=== PATIENT | female | born 1985 | race American Indian/Alaskan Native ===

== ENCOUNTER 2016-06-30 01:56 | Emergency (ER) | payer MEDICAID ==
[2016-06-30 03:05] VITALS: BP 128/80
[2016-06-30 04:54] LABS: Basophils % (Auto) 0.7 % (0.0-1.8); Eosinophils % (Auto) 2.3 % (0.0-4.3); Hematocrit 32.9 % (30.3-42.9); Mean Corpuscular HGB Conc 33 % (30-34); Mean Corpuscular Hemoglobin 30 pg (28-32); Mean Corpuscular Volume 91 fl (79-97); Platelet Count 300 K/mm3 (140-440); Red Blood Count 3.61 M/mm3 (3.65-5.03); Red Cell Distribution Width 12.9 % (13.2-15.2); White Blood Count 6.3 K/mm3 (4.5-11.0)
[2016-06-30 05:02] LABS: BUN/Creatinine Ratio 16.66; Blood Urea Nitrogen 10 mg/dL (7-17); Calcium 8.6 mg/dL (8.4-10.2); Carbon Dioxide 28 mmol/L (22-30); Chloride 99.4 mmol/L (98-107); Glucose 56 mg/dL (65-100); Potassium 3.4 mmol/L (3.6-5.0); Sodium 142 mmol/L (137-145)
[2016-06-30 05:08] LABS: Anion Gap 18 mmol/L
--- NOTE | 2016-06-30 19:42 | ED Elopement Review ---
ED Pt Elopement review - Results review Lab results: Laboratory Tests 06/30/16 06/30/16 06/30/16 04:27 04:27 04:27 WBC 6.3 RBC 3.61 L Hgb 11.0 Hct 32.9 MCV 91 MCH 30 MCHC 33 RDW 12.9 L Plt Count 300 Lymph % (Auto) 43.0 H [place] % (Auto) 10.3 H Eos % (Auto) 2.3 Baso % (Auto) 0.7 Lymph # 2.7 [place] # 0.7 Eos # 0.1 Baso # 0.0 Seg Neutrophils % 43.7 Seg Neutrophils # 2.8 Sodium 142 Potassium 3.4 L Chloride 99.4 Carbon Dioxide 28 Anion Gap 18 BUN 10 Creatinine 0.6 L Estimated GFR > 60 BUN/Creatinine Ratio 16.66 Glucose 56 L Calcium 8.6 Troponin T < 0.010 < 0.010 Urine HCG, Qual 06/30/16 06/30/16 07:40 09:12 WBC RBC Hgb Hct MCV MCH MCHC RDW Plt Count Lymph % (Auto) [place] % (Auto) Eos % (Auto) Baso % (Auto) Lymph # [place] # Eos # Baso # Seg Neutrophils % Seg Neutrophils # Sodium Potassium Chloride Carbon Dioxide Anion Gap BUN Creatinine Estimated GFR BUN/Creatinine Ratio Glucose Calcium Troponin T < 0.010 Urine HCG, Qual Negative - Call Back decision Pt Call Back Decision: No action required
== END 2016-06-30 04:30 | disposition left against medical advice (07) ==
LOC: ED 01:56
DX: R00.2 Palpitations (principal); M54.5 Low back pain; Z53.21 Procedure and treatment not carried out due to patient leaving prior to being seen by health care provider
CPT/HCPCS: 36415; 80048; 81025; 84484; 85025; 93005; 93010

== ENCOUNTER 2016-09-16 09:18 | Day surgery (SDC) | payer MEDICAID ==
[~2016-09-16 09:18] MED LIST: VANCOMYCIN/NS 1 GM/250 ML 1 GM/250 ML BAG IV NR
--- NOTE | 2016-09-16 10:34 | Anesthesia Consultation ---
Anesthesia Consult and Med Hx Date of service: 09/16/16 - Airway Anesthetic Teeth Evaluation: Good ROM Head & Neck: Adequate Mental/Hyoid Distance: Adequate Mallampati Class: Class II Intubation Access Assessment: Probably Good - Pulmonary Exam CTA: Yes - Cardiac Exam Cardiac Exam: RRR - Pre-Operative Health Status ASA Pre-Surgery Classification: ASA2 Proposed Anesthetic Plan: General - Pulmonary Hx Smoking: No Hx Asthma: Yes (LAST USE OF INHALER WAS 1 YR AGO/ "DON'T HAVE AN INHALER") Hx Respiratory Symptoms: No SOB: No COPD: No Hx Pneumonia: No Hx Sleep Apnea: No - Cardiovascular System Hx Hypertension: No Hx Coronary Artery Disease: No Hx Heart Attack/AMI: No Hx Angina: No Hx Percutaneous Transluminal Coronary Angioplasty (PTCA): No Hx Cardia Arrhythmia: No Hx Pacemaker: No Hx Internal Defibrillator: No Hx Valvular Heart Disease: No Hx Heart Murmur: No Hx Peripheral Vascular Disease: No - Central Nervous System Hx Neuromuscular Disorder: No Hx Seizures: No CVA: No Hx Back Pain: Yes Hx Psychiatric Problems: Yes (REFUSES PYSCH MEDICATIONS) - Gastrointestinal Hx Ulcer: No Hx Gastroesophageal Reflux Disease: No - Endocrine Hx Renal Disease: No Hx End Stage Renal Disease: No Hx Cirrhosis: No Hx Liver Disease: No Hx Insulin Dependent Diabetes: No Hx Non-Insulin Dependent Diabetes: No Hx Thyroid Disease: No Hx Hypothyroidism: No Hx Hyperthyroidism: No - Hematic Hx Anemia: No Hx Sickle Cell Disease: No - Other Systems Hx Alcohol Use: No Hx Substance Use: No Hx Cancer: No Hx Obesity: Yes
--- NOTE | 2016-09-16 10:35 | Anesthesia Day of Surgery ---
Anesthesia Day of Surgery - Day of Surgery Patient Examined: Yes Patient H&P Reviewed: Yes Patient is NPO: Yes
[2016-09-16] MEDS ORDERED: NORCO 5/325 PO PRN ×2 (10:37→19:26)
[2016-09-16] MEDS ORDERED: DILAUDID IV PRN (10:37)
[2016-09-16] MEDS ORDERED: ZOFRAN IV PRN ×2 (10:37→19:26)
[2016-09-16] MEDS ORDERED: LACTATED RINGERS 1,000 ML IV SCH (11:00)
[2016-09-16] MEDS ORDERED: VERSED IV NR (11:00)
[2016-09-16] MEDS ORDERED: PEPCID PO NR (11:00)
[2016-09-16 11:18] LABS: Hematocrit 36.7 % (30.3-42.9); Hemoglobin 12.3 gm/dl (10.1-14.3); Mean Corpuscular HGB Conc 33 % (30-34); Mean Corpuscular Hemoglobin 30 pg (28-32); Mean Corpuscular Volume 89 fl (79-97); Platelet Count 335 K/mm3 (140-440); Red Blood Count 4.12 M/mm3 (3.65-5.03); Red Cell Distribution Width 13.4 % (13.2-15.2); White Blood Count 4.9 K/mm3 (4.5-11.0)
[2016-09-16] MEDS ORDERED: DIPRIVAN 10 MG/ML IV ONE ×2 (13:55→17:01)
[2016-09-16] MEDS ORDERED: DILAUDID ONE (13:56)
[2016-09-16] MEDS ORDERED: XYLOCAINE MPF 2% ONE (16:00)
[2016-09-16] MEDS ORDERED: SUBLIMAZE ONE (16:03)
[2016-09-16] MEDS ORDERED: ZOFRAN ONE (16:18)
[2016-09-16] MEDS ORDERED: DECADRON ONE (16:18)
[2016-09-16] MEDS ORDERED: BREVIBLOC IV ONE (16:24)
[2016-09-16] MEDS ORDERED: NORMODYNE IV ONE (17:04)
[2016-09-16] MEDS ORDERED: NACL 0.9% IR ONE (17:06)
[2016-09-16] MEDS ORDERED: APRESOLINE ONE (17:08)
[2016-09-16] MEDS ORDERED: LACTATED RINGERS 1,000 ML ONE (17:22)
--- NOTE | 2016-09-16 19:00 | Operative Report ---
PREOPERATIVE DIAGNOSIS: Macromastia. POSTOPERATIVE DIAGNOSIS: Macromastia. PROCEDURE: Bilateral reduction mammoplasty. SURGEON: Ranjit Mccain MD INSOLE COVERER: Jl Ren CSA PROCEDURE: Bilateral breast reduction. FINDINGS: A 900 gm removed from the left breast, 1020 gm removed from the right breast. DESCRIPTION OF PROCEDURE: The patient was brought to the operating room and placed in supine position. On administration of general anesthesia, bilateral breasts were prepped with Betadine solution and draped in usual sterile manner. A #10 blade scalpel was used to make a circumareolar skin incision followed by epithelization of an inferior dermal pedicle. Otherwise pattern skin markings were incised with scalpel, deepened through subcutaneous fat and breast tissue using the electrocautery. Skin flaps were raised in standard manner as was fashioning of an inferior central mound pedicle. Breasts tissue was resected and sent to pathology as specimen. Hemostasis controlled using the electrocautery. Skin flaps were closed over 10-mm Porfirio drain using interrupted and running subcuticular 2-0 Monocryl sutures. Mastisol, Steri-Strips, and sterile dressings applied. The patient tolerated the procedure well and returned to recovery room in stable condition. JOB# [id number] FTW/NTS
[2016-09-16] MEDS: DILAUDID IV PRN ×2 (19:35→19:55)
[2016-09-16 21:03] VITALS: BP 127/88
--- NOTE | 2016-09-16 21:34 | Post Anesthesia Evaluation ---
- Post Anesthesia Evaluation Patient Participated: Yes Airway Patent: Yes Stable Respiratory Function: Yes Temp > 96.8F: Yes Pain Manageable: Yes Adequeate Hydration: Yes Anesthesia Complications: No Block Receding Appropriately: Not Applicable
== END 2016-09-16 21:45 | disposition home or self-care (01) ==
LOC: OR 09:18
PROVIDERS: ATTEND Plastic Surgery
DX: N62 Hypertrophy of breast (principal); F41.9 Anxiety disorder, unspecified; F32.9 Major depressive disorder, single episode, unspecified; J45.909 Unspecified asthma, uncomplicated; E66.9 Obesity, unspecified; Z68.35 Body mass index [BMI] 35.0-35.9, adult
CPT/HCPCS: 19318; 36415; 81025; 85027; 88305; J0360; J1100; J1170; J2250; J2405; J2704; J3010; J3370; J7120

== ENCOUNTER 2016-10-27 16:57 | Emergency (ER) | payer MEDICAID ==
[2016-10-27 17:53] VITALS: BP 137/93
--- NOTE | 2016-10-27 20:00 | Emergency Department Report ---
ED Rash HPI - HPI Chief Complaint: Skin Rash Stated Complaint: ITCHING Time Seen by Provider: 10/27/16 19:31 Duration: ongoing for more than a week Location: Other (generalized) Suspected Cause: Unknown Rash Symptoms: Yes Itching (all over body.), No Facial Swelling, No Tongue/Oral Swelling, No Breathing Difficulties, No Choking Sensation, No Wheezing/Dyspnea, No Peeling, No Blistering, No Fever, No Lightheaded, No Malaise, No Myalgias Severity: moderate Other History: Patient here complaining itching her body. She denies any rash. She says she's been seen by her primary care doctor [facility] on some anti-itch and medication to exclude a hydroxyzine but it didn't help. He put her on 3 different medication but she says she still itching all over. She says she's scratching and itching is more intense when she gets in the shower. Denies any nausea or vomiting. Patient denies any respiratory symptoms. Denies any fever or chills. Denies any rash in her body. She says she just had red escalona from where she is itching. Denies any new food, medication in her environment. She had breast reduction at this hospital recently but she is healing fine. ED Review of Systems ROS: Stated complaint: ITCHING Other details as noted in HPI Comment: All other systems reviewed and negative Constitutional: denies: chills, fever ENT: denies: throat pain, congestion Respiratory: no symptoms reported Cardiovascular: denies: chest pain, palpitations, edema, syncope Gastrointestinal: denies: nausea, vomiting Musculoskeletal: denies: back pain, arthralgia Skin: pruritus. denies: rash, lesions Neurological: denies: headache ED Past Medical Hx - Past Medical History Previous Medical History?: Yes Hx Hypertension: No Hx Heart Attack/AMI: No Hx Liver Disease: No Hx Renal Disease: No Hx Sickle Cell Disease: No Hx Headaches / Migraines: Yes (MIGRAINES) Hx Seizures: No Hx Asthma: Yes (LAST USE OF INHALER WAS 1 YR AGO/ "DON'T HAVE AN INHALER") Hx COPD: No Hx HIV: No - Surgical History Past Surgical History?: Yes Hx Pacemaker: No Hx Internal Defibrillator: No Additional Surgical History: csection. D & C - Family History Family history: no significant - Social History Smoking Status: Never Smoker Substance Use Type: None - Medications Home Medications: Home Medications Medication Instructions Recorded Confirmed Last Taken Type HYDROcodone/APAP 5-325 [Fleming 1 each PO Q6HR PRN #20 tablet 03/12/14 09/13/16 Unknown Rx 5/325] Cephalexin [Keflex] 500 mg PO 09/13/16 Unknown History Sulfamethoxazole/Trimethoprim 1 tab PO BID 09/13/16 09/13/16 Unknown History [Sulfamethoxazole-Tmp Ds Tablet] hydrOXYzine HCL [Atarax] 25 mg PO Q6HR PRN #16 tablet 10/27/16 Unknown Rx Rash Exam - Exam General: Vital signs noted. No distress. Alert and acting appropriately. This is a 31-year-old female well-nourished well-developed in no acute distress. HEENT: No Periorbital Edema, No Conjuctival Injection, No Chemosis, No Perioral Edema, No Tongue Edema, No Uvular Edema, No Compromised Airway, No Drooling Lungs: Yes Good Air Exchange, No Wheezes, No Ronchi, No Stridor, No Cough, No Labored Respirations, No Retractions, No Use of Accessory Muscles Heart: Yes Regular (S1-S2. Tachycardic at 107), No Murmur Skin: No Urticarial Rash, No Maculopapular Rash, No Morbilliform rash, No Bulla( e), No Excoriations, No Weeping, No Tenderness, No Erythema, No Edema, No Encrustations, No Other Other: Positive: Abdomen Normal, Neurologic Normal, Musculoskeletal Normal ED Course Vital Signs 10/27/16 17:50 Temperature 98.4 F Pulse Rate 107 H Respiratory 18 Rate Blood Pressure 137/93 O2 Sat by Pulse 99 Oximetry Vital Signs 10/27/16 10/27/16 17:50 20:49 Temperature 98.4 F Pulse Rate 107 H 92 H Respiratory 18 Rate Blood Pressure 137/93 O2 Sat by Pulse 99 Oximetry - Reevaluation(s) Reevaluation #1: 10/27/16 20:52 10/27/16 20:53 Patient given Decadron 10 mg IM and emergency room. ED Medical Decision Making - Medical Decision Making ED course: Patient here for itchy skin, up and surveillance of her skin, no rash noted. Patient was treated by her primary care physician with 3 different types of anti-itch medication but it's not working. Patient was given Decadron 10 mg IM and emergency room. 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 SHe voices understanding and discharged home in stable condition with prescription for Atarax Critical care attestation.: If time is entered above; I have spent that time in minutes in the direct care of this critically ill patient, excluding procedure time. ED Disposition Clinical Impression: Pruritic condition Disposition: DISCHARGED TO HOME OR SELFCARE Is pt being admited?: No Does the pt Need Aspirin: No Condition: Stable Instructions: Itchy Skin (ED) Additional Instructions: Please follow-up with your primary care physician along with school traffic guard is recommended in discharge instruction paperwork. Atarax can cause drowsiness so please do not operate heavy machinery or drive motor vehicle while taking this medication. Prescriptions: hydrOXYzine HCL [Atarax] 25 mg PO Q6HR PRN #16 tablet PRN Reason: Itching Referrals: PRIMARY CAREMD [Primary Care Provider] - 2-3 Days JUAN ORTIZ MD [Staff Physician] - 2-3 Days Forms: Accompanied Note, Work/School Release Form(ED)
[2016-10-27] MEDS ORDERED: DECADRON IM ONE (20:01)
== END 2016-10-27 21:03 | disposition home or self-care (01) ==
LOC: ED 16:57
DX: L29.9 Pruritus, unspecified (principal); G43.909 Migraine, unspecified, not intractable, without status migrainosus; J45.909 Unspecified asthma, uncomplicated
CPT/HCPCS: 96372; 99281; J1100

== ENCOUNTER 2016-11-11 21:31 | Emergency (ER) | payer MEDICAID ==
--- NOTE | 2016-11-12 01:52 | Emergency Department Report ---
ED General Adult HPI - General Chief complaint: Skin Rash Stated complaint: RASH Time Seen by Provider: 11/12/16 00:58 Source: patient Mode of arrival: Ambulatory Limitations: No Limitations - History of Present Illness Initial comments: This is a 31-year-old female that c/o of "itching inside" since 2012. Patient stated this is an intermittent. Patient denies any rash, fever, chills, abd pain, CP, SOB, numbness, tingling, headache, stiff neck. Patient stated she's been seeing her primary care doctor supervisor rolling room that has been taking several different medication with no relief. Patient describes symptoms as " something is itching inside my body". 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 Patient agrees to N allergies. Patient stated was here 2012 and received steroids that helped her symptoms but denies taking steroids the past 2 years. MD Complaint: Itching -: Gradual, year(s) (4) Radiation: non-radiation Severity scale (0 -10): 0 Consistency: intermittent Improves with: other (prednisone) Worsens with: none Associated Symptoms: denies other symptoms. denies: confusion, cough, diaphoresis, fever/chills, headaches, loss of appetite, malaise, nausea/vomiting , rash, seizure, shortness of breath, syncope, weakness Treatments Prior to Arrival: none - Related Data Home Medications Medication Instructions Recorded Confirmed Last Taken Clarithromycin [Biaxin] 500 mg PO BID 11/12/16 11/12/16 1 Day Ago Ferrous Sulfate [Feosol] 325 mg PO BID 11/12/16 11/12/16 1 Day Ago Potassium Citrate [Potassium 10 meq PO DAILY 11/12/16 11/12/16 1 Day Ago Citrate ER] Topiramate [Topamax] 100 mg PO BID 11/12/16 11/12/16 1 Day Ago diphenhydrAMINE [Benadryl CAP] 25 mg PO Q6HR PRN 11/12/16 11/12/16 1 Day Ago metroNIDAZOLE [Flagyl] 500 mg PO Q12HR 11/12/16 11/12/16 11/11/16 Previous Rx's Medication Instructions Recorded Last Taken Type hydrOXYzine HCL [Atarax] 25 mg PO Q6HR PRN #16 tablet 10/27/16 11/12/16 Rx predniSONE [Deltasone] 20 mg PO BID #10 tab 11/12/16 Unknown Rx Allergies Allergy/AdvReac Type Severity Reaction Status Date / Time Penicillins Allergy Swelling Verified 01/26/14 20:27 ED Review of Systems ROS: Stated complaint: RASH Other details as noted in HPI Constitutional: denies: chills, fever Eyes: denies: eye pain, eye discharge, vision change ENT: denies: ear pain, throat pain Respiratory: denies: cough, shortness of breath, wheezing Cardiovascular: denies: chest pain, palpitations Endocrine: no symptoms reported Gastrointestinal: denies: abdominal pain, nausea, diarrhea Genitourinary: denies: urgency, dysuria, discharge Musculoskeletal: denies: back pain, joint swelling, arthralgia Skin: denies: rash, lesions Neurological: denies: headache, weakness, paresthesias Psychiatric: denies: anxiety, depression Hematological/Lymphatic: denies: easy bleeding, easy bruising ED Past Medical Hx - Past Medical History Hx Hypertension: No Hx Heart Attack/AMI: No Hx Liver Disease: No Hx Renal Disease: No Hx Sickle Cell Disease: No Hx Headaches / Migraines: Yes (MIGRAINES) Hx Seizures: No Hx Asthma: Yes (LAST USE OF INHALER WAS 1 YR AGO/ "DON'T HAVE AN INHALER") Hx COPD: No Hx HIV: No - Surgical History Hx Pacemaker: No Hx Internal Defibrillator: No Additional Surgical History: csection. D & C - Social History Smoking Status: Never Smoker Substance Use Type: None - Medications Home Medications: Home Medications Medication Instructions Recorded Confirmed Last Taken Type hydrOXYzine HCL [Atarax] 25 mg PO Q6HR PRN #16 tablet 10/27/16 11/12/16 Rx Clarithromycin [Biaxin] 500 mg PO BID 11/12/16 11/12/16 1 Day Ago History Ferrous Sulfate [Feosol] 325 mg PO BID 11/12/16 11/12/16 1 Day Ago History Potassium Citrate [Potassium 10 meq PO DAILY 11/12/16 11/12/16 1 Day Ago History Citrate ER] Topiramate [Topamax] 100 mg PO BID 11/12/16 11/12/16 1 Day Ago History diphenhydrAMINE [Benadryl CAP] 25 mg PO Q6HR PRN 11/12/16 11/12/16 1 Day Ago History metroNIDAZOLE [Flagyl] 500 mg PO Q12HR 11/12/16 11/12/16 11/11/16 History predniSONE [Deltasone] 20 mg PO BID #10 tab 11/12/16 Unknown Rx ED Physical Exam - General Limitations: No Limitations General appearance: alert, in no apparent distress - Head Head exam: Present: atraumatic, normocephalic - Eye Eye exam: Present: normal appearance, PERRL, EOMI Pupils: Present: normal accommodation - ENT ENT exam: Present: normal exam, normal orophraynx, mucous membranes moist, TM's normal bilaterally, normal external ear exam - Neck Neck exam: Present: normal inspection, full ROM. Absent: tenderness, meningismus, lymphadenopathy, thyromegaly - Respiratory Respiratory exam: Present: normal lung sounds bilaterally. Absent: respiratory distress, wheezes, rales, rhonchi, stridor, chest wall tenderness, accessory muscle use, decreased breath sounds, prolonged expiratory - Cardiovascular Cardiovascular Exam: Present: regular rate, normal rhythm, normal heart sounds. Absent: bradycardia, tachycardia, irregular rhythm, systolic murmur, diastolic murmur, rubs, gallop - GI/Abdominal GI/Abdominal exam: Present: soft, normal bowel sounds. Absent: distended, tenderness, guarding, rebound, rigid, diminished bowel sounds, hyperactive bowel sounds, hypoactive bowel sounds, organomegaly, mass, bruit, pulsatile mass , hernia - Extremities Exam Extremities exam: Present: normal inspection, full ROM, normal capillary refill. Absent: tenderness, pedal edema, joint swelling, calf tenderness - Back Exam Back exam: Present: normal inspection, full ROM. Absent: tenderness, CVA tenderness (R), CVA tenderness (L), muscle spasm, paraspinal tenderness, vertebral tenderness, rash noted - Neurological Exam Neurological exam: Present: alert, oriented X3, CN II-XII intact, normal gait - Psychiatric Psychiatric exam: Present: normal affect, normal mood - Skin Skin exam: Present: warm, dry, intact, normal color. Absent: rash, cyanosis, diaphoretic, erythema, urticaria, vesicles, petechiae, pallor, abrasion, ecchymosis ED Course Vital Signs 11/11/16 21:46 Temperature 98.7 F Pulse Rate 100 H Respiratory 18 Rate Blood Pressure 127/90 O2 Sat by Pulse 100 Oximetry ED Medical Decision Making - Medical Decision Making Ed course: This is a 31 year old female that c/o of itching 1- after my physical exam and reviewed 2013 medical treatment, patient received prednisone for 5 days. 2- I instructed the patient to follow-up with her primary care doctor in 3-5 days if symptoms don't subside. 3- at time time of discharge, the patient does not seem toxic or ill in appearance. No acute signs of distress noted. Patient agrees to discharge treatment plan of care. No further questions noted by the patient. Critical care attestation.: If time is entered above; I have spent that time in minutes in the direct care of this critically ill patient, excluding procedure time. ED Disposition Clinical Impression: Itching Disposition: DISCHARGED TO HOME OR SELFCARE Is pt being admited?: No Does the pt Need Aspirin: No Condition: Stable Instructions: Prednisone (By mouth), Itchy Skin (ED) Additional Instructions: Take full course of prednisone as prescribed. Follow-up with her primary care doctor in 3-5 days if symptoms don't subside. Prescriptions: predniSONE [Deltasone] 20 mg PO BID #10 tab Referrals: PRIMARY CAREMD [Primary Care Provider] - 3-5 Days [facility] [Outside] - 3-5 Days [facility] [Outside] - 3-5 Days HOLA HALE MD [Staff Physician] - 3-5 Days Forms: Work/School Release Form(ED)
[2016-11-12 02:26] VITALS: BP 105/76
== END 2016-11-12 02:26 | disposition home or self-care (01) ==
LOC: ED 21:31
DX: L29.9 Pruritus, unspecified (principal); Z53.21 Procedure and treatment not carried out due to patient leaving prior to being seen by health care provider; G43.909 Migraine, unspecified, not intractable, without status migrainosus; J45.909 Unspecified asthma, uncomplicated; Z88.0 Allergy status to penicillin
CPT/HCPCS: 99282

== ENCOUNTER 2016-11-27 11:28 | Outpatient (CLI) | payer MEDICAID ==
--- NOTE | 2016-11-27 14:19 | Cat Scan Report ---
CT lumbar spine without contrast: Low back pain. Transverse images are obtained from T12 through the sacrum with coronal and sagittal 2-D reformatted images. The vertebral height, alignment, and interspace distances are well preserved. The bones are well-mineralized. No evidence of foraminal or spinal stenosis. No evidence of disc bulge or herniation. Evaluation for these findings however may be somewhat limited by the lack of thecal contrast. Impressions: No pathology identified.
== END 2016-11-27 11:29 | disposition home or self-care (01) ==
LOC: CT 11:28
PROVIDERS: ATTEND Physical Medicine & Rehabilitation
DX: M54.5 Low back pain (principal); J45.909 Unspecified asthma, uncomplicated; F32.9 Major depressive disorder, single episode, unspecified; F41.9 Anxiety disorder, unspecified
CPT/HCPCS: 72131

== ENCOUNTER 2017-03-05 03:40 | Emergency (ER) | payer MEDICAID ==
[2017-03-05 05:07] LABS: Urine Drugs of Abuse Note Disclamer
[2017-03-05 05:15] LABS: Hematocrit 36.9 % (30.3-42.9); Mean Corpuscular HGB Conc 33 % (30-34); Mean Corpuscular Hemoglobin 28 pg (28-32); Mean Corpuscular Volume 87 fl (79-97); Platelet Count 382 K/mm3 (140-440); Red Blood Count 4.25 M/mm3 (3.65-5.03); Red Cell Distribution Width 14.2 % (13.2-15.2); White Blood Count 8.9 K/mm3 (4.5-11.0)
[2017-03-05 05:18] LABS: Bacteria,Urine 2+ /HPF (Negative); Bilirubin,Urine NEG (Negative); Blood,Urine NEG (Negative); Ketones,Urine NEG (Negative); Leukocyte Esterase,Urine LG (Negative); Mucus,Urine FEW /HPF; Nitrite,Urine NEG (Negative); Protein,Urine <15 mg/dL mg/dL (Negative); Urobilinogen,Urine < 2.0 mg/dL (<2.0)
[2017-03-05 05:24] LABS: INR 1.02 (0.87-1.13)
[2017-03-05 05:25] LABS: Partial Thromboplastin Time 32.8 Sec. (24.2-36.6)
[2017-03-05 05:30] LABS: Alanine Aminotransferase 15 units/L (7-56); Albumin 4.1 g/dL (3.9-5); Albumin/Globulin Ratio 0.9 %; Alkaline Phosphatase 93 units/L (35-129); Anion Gap 22 mmol/L; BUN/Creatinine Ratio 11.66; Blood Urea Nitrogen 7 mg/dL (7-17); Carbon Dioxide 17 mmol/L (22-30); Chloride 103.1 mmol/L (98-107); Glucose 193 mg/dL (65-100); Lipase 19 units/L (13-60); Potassium 3.7 mmol/L (3.6-5.0); Sodium 138 mmol/L (137-145); Total Protein 8.6 g/dL (6.3-8.2)
[2017-03-05 05:49] LABS: Basophils % (Manual) 0 % (0.0-1.8); Blastocytes % (Manual) 0 %; Eosinophils % (Manual) 0 % (0.0-4.3); Total Cells Counted Percent 0
[2017-03-05 05:50] LABS: Diff Status Complete; Platelet Estimate Consistent w Auto
--- NOTE | 2017-03-05 11:13 | Emergency Department Report ---
ED General Adult HPI - General Chief complaint: Skin Rash Stated complaint: HIVES Time Seen by Provider: 03/05/17 11:11 Source: patient Mode of arrival: Ambulatory Limitations: No Limitations - History of Present Illness Initial comments: Patient has been previously seen by an allergy horticultural manager. She is on multiple medications for recurrent hives. She states that she took 5 prednisone yesterday by her tv host told her not to take prednisone so they can do some blood tests. She has recurrent hives and generalized pruritus today. She denies any respiratory symptoms. She states she has a history of thyroid problems. She arrived tachycardic and somewhat anxious. She had no other complaint. -: month(s) Location: chest, back, abdomen (pruritus no pain) Associated Symptoms: denies other symptoms - Related Data Home Medications Medication Instructions Recorded Confirmed Last Taken Clarithromycin [Biaxin] 500 mg PO BID 11/12/16 11/12/16 1 Day Ago Ferrous Sulfate [Feosol] 325 mg PO BID 11/12/16 11/12/16 1 Day Ago Potassium Citrate [Potassium 10 meq PO DAILY 11/12/16 11/12/16 1 Day Ago Citrate ER] Topiramate [Topamax] 100 mg PO BID 11/12/16 11/12/16 1 Day Ago diphenhydrAMINE [Benadryl CAP] 25 mg PO Q6HR PRN 11/12/16 11/12/16 1 Day Ago metroNIDAZOLE [Flagyl] 500 mg PO Q12HR 11/12/16 11/12/16 11/11/16 Previous Rx's Medication Instructions Recorded Last Taken Type hydrOXYzine HCL [Atarax] 25 mg PO Q6HR PRN #16 tablet 10/27/16 11/12/16 Rx predniSONE [Deltasone] 20 mg PO BID #10 tab 11/12/16 Unknown Rx Famotidine [Pepcid] 20 mg PO BID #7 tablet 03/05/17 Unknown Rx Nitrofurantoin Bland/M-Cryst 100 mg PO Q12HR #7 capsule 03/05/17 Unknown Rx [Macrobid CAP] Allergies Allergy/AdvReac Type Severity Reaction Status Date / Time Penicillins Allergy Swelling Verified 01/26/14 20:27 ED Review of Systems ROS: Stated complaint: HIVES Other details as noted in HPI Constitutional: denies: chills, fever Eyes: denies: eye pain, eye discharge, vision change ENT: denies: ear pain, throat pain Respiratory: denies: cough, shortness of breath, wheezing Cardiovascular: denies: chest pain, palpitations Endocrine: no symptoms reported Gastrointestinal: denies: abdominal pain, nausea, diarrhea Genitourinary: denies: urgency, dysuria, discharge Musculoskeletal: denies: back pain, joint swelling, arthralgia Skin: denies: rash, lesions Neurological: as per HPI. denies: headache, weakness, paresthesias Psychiatric: denies: anxiety, depression Hematological/Lymphatic: denies: easy bleeding, easy bruising ED Past Medical Hx - Past Medical History Previous Medical History?: Yes Hx Hypertension: No Hx Heart Attack/AMI: No Hx Liver Disease: No Hx Renal Disease: No Hx Sickle Cell Disease: No Hx Arthritis: Yes Hx Headaches / Migraines: Yes (MIGRAINES) Hx Seizures: No Hx Asthma: Yes (LAST USE OF INHALER WAS 1 YR AGO/ "DON'T HAVE AN INHALER") Hx COPD: No Hx HIV: No - Surgical History Past Surgical History?: Yes Hx Pacemaker: No Hx Internal Defibrillator: No Additional Surgical History: csection. D & C - Social History Smoking Status: Never Smoker Substance Use Type: None - Medications Home Medications: Home Medications Medication Instructions Recorded Confirmed Last Taken Type hydrOXYzine HCL [Atarax] 25 mg PO Q6HR PRN #16 tablet 10/27/16 11/12/16 Rx Clarithromycin [Biaxin] 500 mg PO BID 11/12/16 11/12/16 1 Day Ago History Ferrous Sulfate [Feosol] 325 mg PO BID 11/12/16 11/12/16 1 Day Ago History Potassium Citrate [Potassium 10 meq PO DAILY 11/12/16 11/12/16 1 Day Ago History Citrate ER] Topiramate [Topamax] 100 mg PO BID 11/12/16 11/12/16 1 Day Ago History diphenhydrAMINE [Benadryl CAP] 25 mg PO Q6HR PRN 11/12/16 11/12/16 1 Day Ago History metroNIDAZOLE [Flagyl] 500 mg PO Q12HR 11/12/16 11/12/16 11/11/16 History predniSONE [Deltasone] 20 mg PO BID #10 tab 11/12/16 Unknown Rx Famotidine [Pepcid] 20 mg PO BID #7 tablet 03/05/17 Unknown Rx Nitrofurantoin Bland/M-Cryst 100 mg PO Q12HR #7 capsule 03/05/17 Unknown Rx [Macrobid CAP] ED Physical Exam - General Limitations: No Limitations General appearance: alert, in no apparent distress - Head Head exam: Present: atraumatic, normocephalic - Eye Eye exam: Present: normal appearance. Absent: scleral icterus - ENT ENT exam: Present: normal exam, normal orophraynx, mucous membranes moist - Neck Neck exam: Present: normal inspection, other (no swelling). Absent: tenderness , meningismus - Respiratory Respiratory exam: Present: normal lung sounds bilaterally. Absent: respiratory distress - Cardiovascular Cardiovascular Exam: Present: regular rate, normal rhythm. Absent: systolic murmur, diastolic murmur, rubs, gallop - GI/Abdominal GI/Abdominal exam: Present: soft, normal bowel sounds. Absent: distended, tenderness, guarding, rebound, rigid - Extremities Exam Extremities exam: Present: normal inspection - Back Exam Back exam: Present: normal inspection - Neurological Exam Neurological exam: Present: alert, oriented X3, CN II-XII intact. Absent: motor sensory deficit - Psychiatric Psychiatric exam: Present: normal affect, normal mood - Skin Skin exam: Present: warm, dry, intact, other (some erythroderma and scattered wheals are noted). Absent: rash ED Course Vital Signs 03/05/17 03/05/17 03/05/17 03:45 10:08 10:24 Temperature 97.9 F 99.8 F H Pulse Rate 144 H 127 H Respiratory 18 18 Rate Blood Pressure 133/78 136/87 O2 Sat by Pulse 98 98 Oximetry 03/05/17 12:41 Temperature Pulse Rate Respiratory 16 Rate Blood Pressure O2 Sat by Pulse 98 Oximetry - Reevaluation(s) Reevaluation #1: Resolution of the patient's red skin and wheals were noted. She is subsequently medically improved. She was given IV fluid. Her heart rate improved. She was given Pepcid and that was well-tolerated. QT interval is normal. I think she can be safely continued on Pepcid. She can follow up with her horticultural manager as well. I did give her Decadron here but since her tv host does not want her to continue on prednisone and I will defer that to the tv host consideration. 03/05/17 14:10 ED Medical Decision Making - Lab Data Result diagrams: 03/05/17 04:51 03/05/17 04:51 Laboratory Results - last 24 hr 03/05/17 03/05/17 03/05/17 04:51 04:51 04:51 WBC 8.9 RBC 4.25 Hgb 12.0 Hct 36.9 MCV 87 MCH 28 MCHC 33 RDW 14.2 Plt Count 382 Add Manual Diff Complete Total Counted 100 Seg Neutrophils % Director Customer Seg Neuts % (Manual) 93.0 H Band Neutrophils % 2.0 Lymphocytes % (Manual) 5.0 L Reactive Lymphs % (Man) 0 Monocytes % (Manual) 0 Eosinophils % (Manual) 0 Basophils % (Manual) 0 Metamyelocytes % 0 Myelocytes % 0 Promyelocytes % 0 Blast Cells % 0 Nucleated RBC % Not Reportable Seg Neutrophils # Man 8.3 H Band Neutrophils # 0.2 Lymphocytes # (Manual) 0.4 L Abs React Lymphs (Man) 0.0 Monocytes # (Manual) 0.0 Eosinophils # (Manual) 0.0 Basophils # (Manual) 0.0 Metamyelocytes # 0.0 Myelocytes # 0.0 Promyelocytes # 0.0 Blast Cells # 0.0 WBC Morphology Not Reportable Hypersegmented Neuts Not Reportable Hyposegmented Neuts Not Reportable Hypogranular Neuts Not Reportable Smudge Cells Not Reportable Toxic Granulation Not Reportable Toxic Vacuolation Not Reportable Dohle Bodies Not Reportable Pelger-Huet Anomaly Not Reportable Mojgan Rods Not Reportable Platelet Estimate Consistent w auto Clumped Platelets Not Reportable Plt Clumps, EDTA Not Reportable Large Platelets Not Reportable Giant Platelets Not Reportable Platelet Satelliting Not Reportable Plt Morphology Comment Not Reportable RBC Morphology Not Reportable Dimorphic RBCs Not Reportable Polychromasia Not Reportable Hypochromasia Not Reportable Poikilocytosis Not Reportable Anisocytosis Not Reportable Microcytosis Not Reportable Macrocytosis Not Reportable Spherocytes Not Reportable Pappenheimer Bodies Not Reportable Sickle Cells Not Reportable Target Cells Not Reportable Tear Drop Cells Not Reportable Ovalocytes Not Reportable Helmet Cells Not Reportable [place] Bodies Not Reportable [place] Rings Not Reportable [place] Cells Not Reportable Bite Cells Not Reportable Crenated Cell Not Reportable Elliptocytes Not Reportable Acanthocytes (Spur) Not Reportable Rouleaux Not Reportable Hemoglobin C Crystals Not Reportable Schistocytes Not Reportable Malaria parasites Not Reportable Zach Bodies Not Reportable Hem Pathologist Commnt No PT INR APTT Sodium Potassium Chloride Carbon Dioxide Anion Gap BUN Creatinine Estimated GFR BUN/Creatinine Ratio Glucose Calcium Total Bilirubin AST ALT Alkaline Phosphatase Troponin T < 0.010 Total Protein Albumin Albumin/Globulin Ratio Lipase HCG, Qual Negative Urine Color Urine Turbidity Urine pH Ur Specific [place] Urine Protein Urine Glucose (UA) Urine Ketones Urine Blood Urine Nitrite Urine Bilirubin Urine Urobilinogen Ur Leukocyte Esterase Urine WBC (Auto) Urine RBC (Auto) U Epithel Cells (Auto) Urine Bacteria (Auto) Hyaline Casts Urine Mucus Urine Yeast (Budding) Urine Opiates Screen Urine Methadone Screen Ur Barbiturates Screen Ur Phencyclidine Scrn Ur Amphetamines Screen U Benzodiazepines Scrn Urine Cocaine Screen U Marijuana (THC) Screen Drugs of Abuse Note Plasma/Serum Alcohol 03/05/17 03/05/17 03/05/17 04:51 04:51 04:51 WBC RBC Hgb Hct MCV MCH MCHC RDW Plt Count Add Manual Diff Total Counted Seg Neutrophils % Seg Neuts % (Manual) Band Neutrophils % Lymphocytes % (Manual) Reactive Lymphs % (Man) Monocytes % (Manual) Eosinophils % (Manual) Basophils % (Manual) Metamyelocytes % Myelocytes % Promyelocytes % Blast Cells % Nucleated RBC % Seg Neutrophils # Man Band Neutrophils # Lymphocytes # (Manual) Abs React Lymphs (Man) Monocytes # (Manual) Eosinophils # (Manual) Basophils # (Manual) Metamyelocytes # Myelocytes # Promyelocytes # Blast Cells # WBC Morphology Hypersegmented Neuts Hyposegmented Neuts Hypogranular Neuts Smudge Cells Toxic Granulation Toxic Vacuolation Dohle Bodies Pelger-Huet Anomaly [place] Rods Platelet Estimate Clumped Platelets Plt Clumps, EDTA Large Platelets Giant Platelets Platelet Satelliting Plt Morphology Comment RBC Morphology Dimorphic RBCs Polychromasia Hypochromasia Poikilocytosis Anisocytosis Microcytosis Macrocytosis Spherocytes Pappenheimer Bodies Sickle Cells Target Cells Tear Drop Cells Ovalocytes Helmet Cells [place] Bodies [place] Rings Darling Cells Bite Cells Crenated Cell Elliptocytes Acanthocytes (Spur) Rouleaux Hemoglobin C Crystals Schistocytes Malaria parasites Zach Bodies Hem Pathologist Commnt PT 13.3 INR 1.02 APTT 32.8 Sodium 138 Potassium 3.7 Chloride 103.1 Carbon Dioxide 17 L Anion Gap 22 BUN 7 Creatinine 0.6 L Estimated GFR > 60 BUN/Creatinine Ratio 11.66 Glucose 193 H Calcium 9.0 Total Bilirubin 0.20 AST 16 ALT 15 Alkaline Phosphatase 93 Troponin T Total Protein 8.6 H Albumin 4.1 Albumin/Globulin Ratio 0.9 Lipase 19 HCG, Qual Urine Color Urine Turbidity Urine pH Ur Specific [place] Urine Protein Urine Glucose (UA) Urine Ketones Urine Blood Urine Nitrite Urine Bilirubin Urine Urobilinogen Ur Leukocyte Esterase Urine WBC (Auto) Urine RBC (Auto) U Epithel Cells (Auto) Urine Bacteria (Auto) Hyaline Casts Urine Mucus Urine Yeast (Budding) Urine Opiates Screen Urine Methadone Screen Ur Barbiturates Screen Ur Phencyclidine Scrn Ur Amphetamines Screen U Benzodiazepines Scrn Urine Cocaine Screen U Marijuana (THC) Screen Drugs of Abuse Note Plasma/Serum Alcohol < 0.01 03/05/17 03/05/17 03/05/17 07:14 10:27 Unknown WBC RBC Hgb Hct MCV MCH MCHC RDW Plt Count Add Manual Diff Total Counted Seg Neutrophils % Seg Neuts % (Manual) Band Neutrophils % Lymphocytes % (Manual) Reactive Lymphs % (Man) Monocytes % (Manual) Eosinophils % (Manual) Basophils % (Manual) Metamyelocytes % Myelocytes % Promyelocytes % Blast Cells % Nucleated RBC % Seg Neutrophils # Man Band Neutrophils # Lymphocytes # (Manual) Abs React Lymphs (Man) Monocytes # (Manual) Eosinophils # (Manual) Basophils # (Manual) Metamyelocytes # Myelocytes # Promyelocytes # Blast Cells # WBC Morphology Hypersegmented Neuts Hyposegmented Neuts Hypogranular Neuts Smudge Cells Toxic Granulation Toxic Vacuolation Dohle Bodies Pelger-Huet Anomaly [place] Rods Platelet Estimate Clumped Platelets Plt Clumps, EDTA Large Platelets Giant Platelets Platelet Satelliting Plt Morphology Comment RBC Morphology Dimorphic RBCs Polychromasia Hypochromasia Poikilocytosis Anisocytosis Microcytosis Macrocytosis Spherocytes Pappenheimer Bodies Sickle Cells Target Cells Tear Drop Cells Ovalocytes Helmet Cells [place] Bodies [place] Rings Fredrick Cells Bite Cells Crenated Cell Elliptocytes Acanthocytes (Spur) Rouleaux Hemoglobin C Crystals Schistocytes Malaria parasites Zach Bodies Hem Pathologist Commnt PT INR APTT Sodium Potassium Chloride Carbon Dioxide Anion Gap BUN Creatinine Estimated GFR BUN/Creatinine Ratio Glucose Calcium Total Bilirubin AST ALT Alkaline Phosphatase Troponin T < 0.010 < 0.010 Total Protein Albumin Albumin/Globulin Ratio Lipase HCG, Qual Urine Color Yellow Urine Turbidity Clear Urine pH 6.0 Ur Specific [place] 1.010 Urine Protein <15 mg/dl Urine Glucose (UA) Neg Urine Ketones Neg Urine Blood Neg Urine Nitrite Neg Urine Bilirubin Neg Urine Urobilinogen < 2.0 Ur Leukocyte Esterase Lg Urine WBC (Auto) 4.0 Urine RBC (Auto) 4.0 U Epithel Cells (Auto) 6.0 Urine Bacteria (Auto) 2+ Hyaline Casts 1 Urine Mucus Few Urine Yeast (Budding) 1+ Urine Opiates Screen Urine Methadone Screen Ur Barbiturates Screen Ur Phencyclidine Scrn Ur Amphetamines Screen U Benzodiazepines Scrn Urine Cocaine Screen U Marijuana (THC) Screen Drugs of Abuse Note Plasma/Serum Alcohol 03/05/17 Unknown WBC RBC Hgb Hct MCV MCH MCHC RDW Plt Count Add Manual Diff Total Counted Seg Neutrophils % Seg Neuts % (Manual) Band Neutrophils % Lymphocytes % (Manual) Reactive Lymphs % (Man) Monocytes % (Manual) Eosinophils % (Manual) Basophils % (Manual) Metamyelocytes % Myelocytes % Promyelocytes % Blast Cells % Nucleated RBC % Seg Neutrophils # Man Band Neutrophils # Lymphocytes # (Manual) Abs React Lymphs (Man) Monocytes # (Manual) Eosinophils # (Manual) Basophils # (Manual) Metamyelocytes # Myelocytes # Promyelocytes # Blast Cells # WBC Morphology Hypersegmented Neuts Hyposegmented Neuts Hypogranular Neuts Smudge Cells Toxic Granulation Toxic Vacuolation Dohle Bodies Pelger-Huet Anomaly [place] Rods Platelet Estimate Clumped Platelets Plt Clumps, EDTA Large Platelets Giant Platelets Platelet Satelliting Plt Morphology Comment RBC Morphology Dimorphic RBCs Polychromasia Hypochromasia Poikilocytosis Anisocytosis Microcytosis Macrocytosis Spherocytes Pappenheimer Bodies Sickle Cells Target Cells Tear Drop Cells Ovalocytes Helmet Cells [place] Bodies [place] Rings Fredrick Cells Bite Cells Crenated Cell Elliptocytes Acanthocytes (Spur) Rouleaux Hemoglobin C Crystals Schistocytes Malaria parasites Zach Bodies Hem Pathologist Commnt PT INR APTT Sodium Potassium Chloride Carbon Dioxide Anion Gap BUN Creatinine Estimated GFR BUN/Creatinine Ratio Glucose Calcium Total Bilirubin AST ALT Alkaline Phosphatase Troponin T Total Protein Albumin Albumin/Globulin Ratio Lipase HCG, Qual Urine Color Urine Turbidity Urine pH Ur Specific [place] Urine Protein Urine Glucose (UA) Urine Ketones Urine Blood Urine Nitrite Urine Bilirubin Urine Urobilinogen Ur Leukocyte Esterase Urine WBC (Auto) Urine RBC (Auto) U Epithel Cells (Auto) Urine Bacteria (Auto) Hyaline Casts Urine Mucus Urine Yeast (Budding) Urine Opiates Screen Presumptive negative Urine Methadone Screen Presumptive negative Ur Barbiturates Screen Presumptive negative Ur Phencyclidine Scrn Presumptive negative Ur Amphetamines Screen Presumptive negative U Benzodiazepines Scrn Presumptive negative Urine Cocaine Screen Presumptive negative U Marijuana (THC) Screen Presumptive negative Drugs of Abuse Note Disclamer Plasma/Serum Alcohol Laboratory Results - last 24 hr 03/05/17 03/05/17 03/05/17 04:51 04:51 04:51 WBC 8.9 RBC 4.25 Hgb 12.0 Hct 36.9 MCV 87 MCH 28 MCHC 33 RDW 14.2 Plt Count 382 Add Manual Diff Complete Total Counted 100 Seg Neutrophils % Director Customer Seg Neuts % (Manual) 93.0 H Band Neutrophils % 2.0 Lymphocytes % (Manual) 5.0 L Reactive Lymphs % (Man) 0 Monocytes % (Manual) 0 Eosinophils % (Manual) 0 Basophils % (Manual) 0 Metamyelocytes % 0 Myelocytes % 0 Promyelocytes % 0 Blast Cells % 0 Nucleated RBC % Not Reportable Seg Neutrophils # Man 8.3 H Band Neutrophils # 0.2 Lymphocytes # (Manual) 0.4 L Abs React Lymphs (Man) 0.0 Monocytes # (Manual) 0.0 Eosinophils # (Manual) 0.0 Basophils # (Manual) 0.0 Metamyelocytes # 0.0 Myelocytes # 0.0 Promyelocytes # 0.0 Blast Cells # 0.0 WBC Morphology Not Reportable Hypersegmented Neuts Not Reportable Hyposegmented Neuts Not Reportable Hypogranular Neuts Not Reportable Smudge Cells Not Reportable Toxic Granulation Not Reportable Toxic Vacuolation Not Reportable Dohle Bodies Not Reportable Pelger-Huet Anomaly Not Reportable [place] Rods Not Reportable Platelet Estimate Consistent w auto Clumped Platelets Not Reportable Plt Clumps, EDTA Not Reportable Large Platelets Not Reportable Giant Platelets Not Reportable Platelet Satelliting Not Reportable Plt Morphology Comment Not Reportable RBC Morphology Not Reportable Dimorphic RBCs Not Reportable Polychromasia Not Reportable Hypochromasia Not Reportable Poikilocytosis Not Reportable Anisocytosis Not Reportable Microcytosis Not Reportable Macrocytosis Not Reportable Spherocytes Not Reportable Pappenheimer Bodies Not Reportable Sickle Cells Not Reportable Target Cells Not Reportable Tear Drop Cells Not Reportable Ovalocytes Not Reportable Helmet Cells Not Reportable [place] Bodies Not Reportable [place] Rings Not Reportable [place] Cells Not Reportable Bite Cells Not Reportable Crenated Cell Not Reportable Elliptocytes Not Reportable Acanthocytes (Spur) Not Reportable Rouleaux Not Reportable Hemoglobin C Crystals Not Reportable Schistocytes Not Reportable Malaria parasites Not Reportable Zach Bodies Not Reportable Hem Pathologist Commnt No PT INR APTT Sodium Potassium Chloride Carbon Dioxide Anion Gap BUN Creatinine Estimated GFR BUN/Creatinine Ratio Glucose Calcium Total Bilirubin AST ALT Alkaline Phosphatase Troponin T < 0.010 Total Protein Albumin Albumin/Globulin Ratio Lipase TSH Free T4 HCG, Qual Negative Urine Color Urine Turbidity Urine pH Ur Specific [place] Urine Protein Urine Glucose (UA) Urine Ketones Urine Blood Urine Nitrite Urine Bilirubin Urine Urobilinogen Ur Leukocyte Esterase Urine WBC (Auto) Urine RBC (Auto) U Epithel Cells (Auto) Urine Bacteria (Auto) Hyaline Casts Urine Mucus Urine Yeast (Budding) Urine Opiates Screen Urine Methadone Screen Ur Barbiturates Screen Ur Phencyclidine Scrn Ur Amphetamines Screen U Benzodiazepines Scrn Urine Cocaine Screen U Marijuana (THC) Screen Drugs of Abuse Note Plasma/Serum Alcohol 03/05/17 03/05/17 03/05/17 04:51 04:51 04:51 WBC RBC Hgb Hct MCV MCH MCHC RDW Plt Count Add Manual Diff Total Counted Seg Neutrophils % Seg Neuts % (Manual) Band Neutrophils % Lymphocytes % (Manual) Reactive Lymphs % (Man) Monocytes % (Manual) Eosinophils % (Manual) Basophils % (Manual) Metamyelocytes % Myelocytes % Promyelocytes % Blast Cells % Nucleated RBC % Seg Neutrophils # Man Band Neutrophils # Lymphocytes # (Manual) Abs React Lymphs (Man) Monocytes # (Manual) Eosinophils # (Manual) Basophils # (Manual) Metamyelocytes # Myelocytes # Promyelocytes # Blast Cells # WBC Morphology Hypersegmented Neuts Hyposegmented Neuts Hypogranular Neuts Smudge Cells Toxic Granulation Toxic Vacuolation Dohle Bodies Pelger-Huet Anomaly [place] Rods Platelet Estimate Clumped Platelets Plt Clumps, EDTA Large Platelets Giant Platelets Platelet Satelliting Plt Morphology Comment RBC Morphology Dimorphic RBCs Polychromasia Hypochromasia Poikilocytosis Anisocytosis Microcytosis Macrocytosis Spherocytes Pappenheimer Bodies Sickle Cells Target Cells Tear Drop Cells Ovalocytes Helmet Cells [place] Bodies [place] Rings Darling Cells Bite Cells Crenated Cell Elliptocytes Acanthocytes (Spur) Rouleaux Hemoglobin C Crystals Schistocytes Malaria parasites Zach Bodies Hem Pathologist Commnt PT 13.3 INR 1.02 APTT 32.8 Sodium 138 Potassium 3.7 Chloride 103.1 Carbon Dioxide 17 L Anion Gap 22 BUN 7 Creatinine 0.6 L Estimated GFR > 60 BUN/Creatinine Ratio 11.66 Glucose 193 H Calcium 9.0 Total Bilirubin 0.20 AST 16 ALT 15 Alkaline Phosphatase 93 Troponin T Total Protein 8.6 H Albumin 4.1 Albumin/Globulin Ratio 0.9 Lipase 19 TSH Free T4 HCG, Qual Urine Color Urine Turbidity Urine pH Ur Specific [place] Urine Protein Urine Glucose (UA) Urine Ketones Urine Blood Urine Nitrite Urine Bilirubin Urine Urobilinogen Ur Leukocyte Esterase Urine WBC (Auto) Urine RBC (Auto) U Epithel Cells (Auto) Urine Bacteria (Auto) Hyaline Casts Urine Mucus Urine Yeast (Budding) Urine Opiates Screen Urine Methadone Screen Ur Barbiturates Screen Ur Phencyclidine Scrn Ur Amphetamines Screen U Benzodiazepines Scrn Urine Cocaine Screen U Marijuana (THC) Screen Drugs of Abuse Note Plasma/Serum Alcohol < 0.01 03/05/17 03/05/17 03/05/17 04:51 07:14 10:27 WBC RBC Hgb Hct MCV MCH MCHC RDW Plt Count Add Manual Diff Total Counted Seg Neutrophils % Seg Neuts % (Manual) Band Neutrophils % Lymphocytes % (Manual) Reactive Lymphs % (Man) Monocytes % (Manual) Eosinophils % (Manual) Basophils % (Manual) Metamyelocytes % Myelocytes % Promyelocytes % Blast Cells % Nucleated RBC % Seg Neutrophils # Man Band Neutrophils # Lymphocytes # (Manual) Abs React Lymphs (Man) Monocytes # (Manual) Eosinophils # (Manual) Basophils # (Manual) Metamyelocytes # Myelocytes # Promyelocytes # Blast Cells # WBC Morphology Hypersegmented Neuts Hyposegmented Neuts Hypogranular Neuts Smudge Cells Toxic Granulation Toxic Vacuolation Dohle Bodies Pelger-Huet Anomaly [place] Rods Platelet Estimate Clumped Platelets Plt Clumps, EDTA Large Platelets Giant Platelets Platelet Satelliting Plt Morphology Comment RBC Morphology Dimorphic RBCs Polychromasia Hypochromasia Poikilocytosis Anisocytosis Microcytosis Macrocytosis Spherocytes Pappenheimer Bodies Sickle Cells Target Cells Tear Drop Cells Ovalocytes Helmet Cells [place] Bodies [place] Rings Darling Cells Bite Cells Crenated Cell Elliptocytes Acanthocytes (Spur) Rouleaux Hemoglobin C Crystals Schistocytes Malaria parasites Zach Bodies Hem Pathologist Commnt PT INR APTT Sodium Potassium Chloride Carbon Dioxide Anion Gap BUN Creatinine Estimated GFR BUN/Creatinine Ratio Glucose Calcium Total Bilirubin AST ALT Alkaline Phosphatase Troponin T < 0.010 < 0.010 Total Protein Albumin Albumin/Globulin Ratio Lipase TSH 2.080 Free T4 1.01 HCG, Qual Urine Color Urine Turbidity Urine pH Ur Specific [place] Urine Protein Urine Glucose (UA) Urine Ketones Urine Blood Urine Nitrite Urine Bilirubin Urine Urobilinogen Ur Leukocyte Esterase Urine WBC (Auto) Urine RBC (Auto) U Epithel Cells (Auto) Urine Bacteria (Auto) Hyaline Casts Urine Mucus Urine Yeast (Budding) Urine Opiates Screen Urine Methadone Screen Ur Barbiturates Screen Ur Phencyclidine Scrn Ur Amphetamines Screen U Benzodiazepines Scrn Urine Cocaine Screen U Marijuana (THC) Screen Drugs of Abuse Note Plasma/Serum Alcohol 03/05/17 03/05/17 Unknown Unknown WBC RBC Hgb Hct MCV MCH MCHC RDW Plt Count Add Manual Diff Total Counted Seg Neutrophils % Seg Neuts % (Manual) Band Neutrophils % Lymphocytes % (Manual) Reactive Lymphs % (Man) Monocytes % (Manual) Eosinophils % (Manual) Basophils % (Manual) Metamyelocytes % Myelocytes % Promyelocytes % Blast Cells % Nucleated RBC % Seg Neutrophils # Man Band Neutrophils # Lymphocytes # (Manual) Abs React Lymphs (Man) Monocytes # (Manual) Eosinophils # (Manual) Basophils # (Manual) Metamyelocytes # Myelocytes # Promyelocytes # Blast Cells # WBC Morphology Hypersegmented Neuts Hyposegmented Neuts Hypogranular Neuts Smudge Cells Toxic Granulation Toxic Vacuolation Dohle Bodies Pelger-Huet Anomaly [place] Rods Platelet Estimate Clumped Platelets Plt Clumps, EDTA Large Platelets Giant Platelets Platelet Satelliting Plt Morphology Comment RBC Morphology Dimorphic RBCs Polychromasia Hypochromasia Poikilocytosis Anisocytosis Microcytosis Macrocytosis Spherocytes Pappenheimer Bodies Sickle Cells Target Cells Tear Drop Cells Ovalocytes Helmet Cells [place] Bodies [place] Rings Fredrick Cells Bite Cells Crenated Cell Elliptocytes Acanthocytes (Spur) Rouleaux Hemoglobin C Crystals Schistocytes Malaria parasites Zach Bodies Hem Pathologist Commnt PT INR APTT Sodium Potassium Chloride Carbon Dioxide Anion Gap BUN Creatinine Estimated GFR BUN/Creatinine Ratio Glucose Calcium Total Bilirubin AST ALT Alkaline Phosphatase Troponin T Total Protein Albumin Albumin/Globulin Ratio Lipase TSH Free T4 HCG, Qual Urine Color Yellow Urine Turbidity Clear Urine pH 6.0 Ur Specific [place] 1.010 Urine Protein <15 mg/dl Urine Glucose (UA) Neg Urine Ketones Neg Urine Blood Neg Urine Nitrite Neg Urine Bilirubin Neg Urine Urobilinogen < 2.0 Ur Leukocyte Esterase Lg Urine WBC (Auto) 4.0 Urine RBC (Auto) 4.0 U Epithel Cells (Auto) 6.0 Urine Bacteria (Auto) 2+ Hyaline Casts 1 Urine Mucus Few Urine Yeast (Budding) 1+ Urine Opiates Screen Presumptive negative Urine Methadone Screen Presumptive negative Ur Barbiturates Screen Presumptive negative Ur Phencyclidine Scrn Presumptive negative Ur Amphetamines Screen Presumptive negative U Benzodiazepines Scrn Presumptive negative Urine Cocaine Screen Presumptive negative U Marijuana (THC) Screen Presumptive negative Drugs of Abuse Note Disclamer Plasma/Serum Alcohol Contaminated urine is likely but will cover with Macrobid. Urine culture pending. - EKG Data -: EKG Interpreted by Me EKG shows normal: sinus rhythm, axis, intervals, QRS complexes - EKG Data Interpretation: other (mild and diffuse ST depression) Critical care attestation.: If time is entered above; I have spent that time in minutes in the direct care of this critically ill patient, excluding procedure time. ED Disposition Clinical Impression: Urticaria, Hyperglycemia, unspecified UTI (urinary tract infection) Qualifiers: Urinary tract infection type: site unspecified Hematuria presence: without hematuria Qualified Code(s): N39.0 - Urinary tract infection, site not specified Disposition: - TO HOME OR SELFCARE Is pt being admited?: No Does the pt Need Aspirin: No Condition: Stable Instructions: Urticaria (ED), Urinary Tract Infection in Women (ED), Hyperglycemia, Non-Diabetic (ED) Additional Instructions: Blood sugar was a little bit elevated. This should be followed up upon. It is likely secondary to prednisone. Nonetheless medication may be required for type 2 diabetes in the future if it stays elevated. In addition a urine was a bit dirty. We're going to place her on an antibiotic now for a possible UTI. Rx Pepcid. Return as needed any acute change or problem. 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 Prescriptions: Famotidine [Pepcid] 20 mg PO BID #7 tablet Nitrofurantoin [place]/M-Cryst [Macrobid CAP] 100 mg PO Q12HR #7 capsule Referrals: PRIMARY CARE, [Primary Care Provider] - 3-5 Days Time of Disposition: 14:14
[2017-03-05] MEDS ORDERED: NACL 0.9% 1000 ML 1,000 ML IV ONE (11:38)
[2017-03-05] MEDS ORDERED: NACL 0.9% 1000 ML 1,000 ML ONE (11:39)
[2017-03-05] MEDS ORDERED: DECADRON IV ONE (11:43)
[2017-03-05] MEDS ORDERED: PEPCID IV ONE (11:43)
[2017-03-05] MEDS ORDERED: VISTARIL IM ONE (11:43)
[2017-03-05] MEDS ORDERED: NACL 0.9% 500 ML 500 ML ONE (13:32)
[2017-03-05] MEDS ORDERED: NACL 0.9% 500 ML 500 ML IV ONE (13:51)
[2017-03-05 14:38] VITALS: BP 157/90
== END 2017-03-05 14:42 | disposition home or self-care (01) ==
LOC: ED 03:40
DX: L50.9 Urticaria, unspecified (principal); N39.0 Urinary tract infection, site not specified; R73.9 Hyperglycemia, unspecified; M19.90 Unspecified osteoarthritis, unspecified site; Z88.0 Allergy status to penicillin
CPT/HCPCS: 36415; 80053; 80307; 81001; 83690; 84439; 84443; 84484; 84703; 85007; 85025; 85610; 85730; 93005; 93010; 96361; 96372; 96374; 96375; 99284; G0480; J1100; J3410; J7030; J7040; 80320

== ENCOUNTER 2017-05-20 19:53 | Emergency (ER) | payer MEDICAID ==
[2017-05-20 20:06] VITALS: BP 130/86
[2017-05-20 20:57] LABS: Hemoglobin 12.1 gm/dl (10.1-14.3); Mean Corpuscular HGB Conc 35 % (30-34); Mean Corpuscular Hemoglobin 29 pg (28-32); Mean Corpuscular Volume 84 fl (79-97); Platelet Count 339 K/mm3 (140-440); Red Blood Count 4.17 M/mm3 (3.65-5.03); Red Cell Distribution Width 13.9 % (13.2-15.2); White Blood Count 10.5 K/mm3 (4.5-11.0)
[2017-05-20 21:08] LABS: Anion Gap 18 mmol/L; BUN/Creatinine Ratio 16; Blood Urea Nitrogen 8 mg/dL (7-17); Carbon Dioxide 29 mmol/L (22-30); Chloride 99.9 mmol/L (98-107); Glucose 121 mg/dL (65-100); Potassium 3.8 mmol/L (3.6-5.0); Sodium 143 mmol/L (137-145)
[2017-05-20 21:53] LABS: Basophils % (Manual) 0 % (0.0-1.8); Blastocytes % (Manual) 0 %; Eosinophils % (Manual) 0 % (0.0-4.3)
[2017-05-20 21:54] LABS: Anisocytosis 1+; Diff Status Complete
== END 2017-05-21 06:00 | disposition left against medical advice (07) ==
LOC: ED 19:53
DX: R10.9 Unspecified abdominal pain (principal); R11.2 Nausea with vomiting, unspecified; Z53.21 Procedure and treatment not carried out due to patient leaving prior to being seen by health care provider
CPT/HCPCS: 36415; 80048; 84703; 85007; 85025

== ENCOUNTER 2019-11-07 19:59 | Emergency (ER) | payer MEDICAID ==
[2019-11-07] MEDS ORDERED: ALUM-MAG HYDROXIDE-SIMETHICONE 200-200-20MG/5ML ORAL LIQD 30 ML PO STA (20:29)
[2019-11-07] MEDS ORDERED: diphenhydrAMINE 50 MG/ML VIAL IV STA (20:29)
[2019-11-07] MEDS ORDERED: SODIUM CHLORIDE 0.9% 1000 ML 1,000 ML IV ONE (20:29)
[2019-11-07] MEDS ORDERED: METOCLOPRAMIDE 10 MG/2 ML INJ IV STA (20:29)
[2019-11-07] MEDS ORDERED: HYOSCYAMINE SUBL 0.125 MG TAB SL ONE (20:32)
[2019-11-07] MEDS ORDERED: LIDOCAINE VISCOUS 2% 15 ML ORAL LIQD PO ONE (20:32)
--- NOTE | 2019-11-07 20:40 | Emergency Department Report ---
ED Abdominal Pain HPI - General Chief Complaint: Abdominal Pain Stated Complaint: VOMITING, ABDOMINAL PAIN Time Seen by Provider: 11/07/19 20:28 Source: patient Mode of arrival: Ambulatory Limitations: No Limitations - History of Present Illness MD Complaint: abdominal pain -: Gradual, days(s) (1) Location: diffuse Radiation: none Migration to: no migration Severity: moderate Quality: stabbing, aching Consistency: constant Improves With: nothing Worsens With: eating Context: possible food poisoning (Patient is suspecting food poisoning) Associated Symptoms: nausea, vomiting. denies: diarrhea, constipation, dysuria, hematemesis, hematochezia, melena, hematuria, syncope - Related Data Home Medications Medication Instructions Recorded Confirmed Last Taken Clarithromycin [Biaxin] 500 mg PO BID 11/12/16 11/12/16 1 Day Ago ~11/11/16 Ferrous Sulfate [Feosol] 325 mg PO BID 11/12/16 11/12/16 1 Day Ago ~11/11/16 Potassium Citrate [Potassium 10 meq PO DAILY 11/12/16 11/12/16 1 Day Ago Citrate ER] ~11/11/16 Topiramate [Topamax] 100 mg PO BID 11/12/16 11/12/16 1 Day Ago ~11/11/16 diphenhydrAMINE [Benadryl CAP] 25 mg PO Q6HR PRN 11/12/16 11/12/16 1 Day Ago ~11/11/16 metroNIDAZOLE [Flagyl] 500 mg PO Q12HR 11/12/16 11/12/16 11/11/16 Previous Rx's Medication Instructions Recorded Last Taken Type Famotidine [Pepcid] 20 mg PO BID #7 tablet 03/05/17 Unknown Rx Nitrofurantoin [place]/M-Cryst 100 mg PO Q12HR #7 capsule 03/05/17 Unknown Rx [Macrobid CAP] Pramoxine HCl/Calamine [Calamine 1 applic TP DAILY #1 lotion 04/10/17 Unknown Rx Medicated Lotion] hydrOXYzine HCL [Atarax] 25 mg PO Q6HR PRN #16 tablet 04/10/17 Unknown Rx predniSONE [Deltasone] 20 mg PO BID #10 tab 04/10/17 Unknown Rx Hyoscyamine Subl [Levsin Sl 0.125 0.125 mg SL Q6HR PRN #20 tab 11/07/19 Unknown Rx TAB] Ketorolac [Toradol] 10 mg PO Q6H PRN #14 tablet 11/07/19 Unknown Rx Ondansetron [Zofran ODT TAB] 8 mg PO Q12HR #14 tab.rapdis 11/07/19 Unknown Rx Allergies Allergy/AdvReac Type Severity Reaction Status Date / Time Penicillins Allergy Swelling Verified 05/20/17 20:04 ED Review of Systems ROS: Stated complaint: VOMITING, ABDOMINAL PAIN Other details as noted in HPI Comment: All other systems reviewed and negative ED Past Medical Hx - Past Medical History Hx Hypertension: No Hx Heart Attack/AMI: No Hx Liver Disease: No Hx Renal Disease: No Hx Sickle Cell Disease: No Hx Arthritis: Yes Hx Headaches / Migraines: Yes (MIGRAINES) Hx Seizures: No Hx Asthma: Yes Hx COPD: No Hx HIV: No - Surgical History Past Surgical History?: Yes Hx Pacemaker: No Hx Internal Defibrillator: No Additional Surgical History: csection. D & C - Social History Smoking Status: Never Smoker Substance Use Type: None - Medications Home Medications: Home Medications Medication Instructions Recorded Confirmed Last Taken Type Clarithromycin [Biaxin] 500 mg PO BID 11/12/16 11/12/16 1 Day Ago History ~11/11/16 Ferrous Sulfate [Feosol] 325 mg PO BID 11/12/16 11/12/16 1 Day Ago History ~11/11/16 Potassium Citrate [Potassium 10 meq PO DAILY 11/12/16 11/12/16 1 Day Ago History Citrate ER] ~11/11/16 Topiramate [Topamax] 100 mg PO BID 11/12/16 11/12/16 1 Day Ago History ~11/11/16 diphenhydrAMINE [Benadryl CAP] 25 mg PO Q6HR PRN 11/12/16 11/12/16 1 Day Ago History ~11/11/16 metroNIDAZOLE [Flagyl] 500 mg PO Q12HR 11/12/16 11/12/16 11/11/16 History Famotidine [Pepcid] 20 mg PO BID #7 tablet 03/05/17 Unknown Rx Nitrofurantoin [place]/M-Cryst 100 mg PO Q12HR #7 capsule 03/05/17 Unknown Rx [Macrobid CAP] Pramoxine HCl/Calamine [Calamine 1 applic TP DAILY #1 lotion 04/10/17 Unknown Rx Medicated Lotion] hydrOXYzine HCL [Atarax] 25 mg PO Q6HR PRN #16 tablet 04/10/17 Unknown Rx predniSONE [Deltasone] 20 mg PO BID #10 tab 04/10/17 Unknown Rx Hyoscyamine Subl [Levsin Sl 0.125 0.125 mg SL Q6HR PRN #20 tab 11/07/19 Unknown Rx TAB] Ketorolac [Toradol] 10 mg PO Q6H PRN #14 tablet 11/07/19 Unknown Rx Ondansetron [Zofran ODT TAB] 8 mg PO Q12HR #14 tab.rapdis 11/07/19 Unknown Rx ED Physical Exam - General Limitations: No Limitations General appearance: alert, in no apparent distress - Head Head exam: Present: atraumatic, normocephalic - Eye Eye exam: Present: normal appearance - ENT ENT exam: Present: mucous membranes moist - Neck Neck exam: Present: normal inspection - Respiratory Respiratory exam: Present: normal lung sounds bilaterally. Absent: respiratory distress - Cardiovascular Cardiovascular Exam: Present: regular rate, normal rhythm. Absent: systolic murmur, diastolic murmur, rubs, gallop - GI/Abdominal GI/Abdominal exam: Present: soft, tenderness (Diffuse abdominal tenderness. No [place] sign, no Solis Cartwright, no Rovsing's,), normal bowel sounds. Absent: hyperactive bowel sounds, hypoactive bowel sounds, organomegaly, mass, pulsatile mass - Extremities Exam Extremities exam: Present: normal inspection - Back Exam Back exam: Present: normal inspection - Neurological Exam Neurological exam: Present: alert, oriented X3 - Psychiatric Psychiatric exam: Present: normal affect, normal mood - Skin Skin exam: Present: warm, dry, intact, normal color. Absent: rash ED Course Vital Signs 11/07/19 20:03 Temperature 99.3 F Pulse Rate 77 Respiratory 18 Rate Blood Pressure 136/94 O2 Sat by Pulse 99 Oximetry ED Medical Decision Making - Lab Data Result diagrams: 11/07/19 20:12 11/07/19 20:12 Lab Results 11/07/19 11/07/19 11/07/19 Range/Units 20:12 20:12 20:12 WBC 4.8 (4.5-11.0) K/mm3 RBC 4.17 (3.65-5.03) M/mm3 Hgb 12.8 (10.1-14.3) gm/dl Hct 37.9 (30.3-42.9) % MCV 91 (79-97) fl MCH 31 (28-32) pg MCHC 34 (30-34) % RDW 12.8 L (13.2-15.2) % Plt Count 401 (140-440) K/mm3 Lymph % (Auto) 50.4 H (13.4-35.0) % [place] % (Auto) 6.1 (0.0-7.3) % Eos % (Auto) 0.6 (0.0-4.3) % Baso % (Auto) 0.9 (0.0-1.8) % Lymph # 2.4 (1.2-5.4) K/mm3 [place] # 0.3 (0.0-0.8) K/mm3 Eos # 0.0 (0.0-0.4) K/mm3 Baso # 0.0 (0.0-0.1) K/mm3 Seg Neutrophils % 42.0 (40.0-70.0) % Seg Neutrophils # 2.0 (1.8-7.7) K/mm3 Sodium 138 (137-145) mmol/L Potassium 3.2 L (3.6-5.0) mmol/L Chloride 98.5 (98-107) mmol/L Carbon Dioxide 25 (22-30) mmol/L Anion Gap 18 mmol/L BUN 5 L (7-17) mg/dL Creatinine 0.6 L (0.7-1.2) mg/dL Estimated GFR > 60 ml/min BUN/Creatinine Ratio 8 % Glucose 105 H (65-100) mg/dL Calcium 9.1 (8.4-10.2) mg/dL Total Bilirubin 0.20 (0.1-1.2) mg/dL AST 14 (5-40) units/L ALT 10 (7-56) units/L Alkaline Phosphatase 88 (35-129) units/L Total Protein 7.9 (6.3-8.2) g/dL Albumin 3.9 (3.9-5) g/dL Albumin/Globulin Ratio 1.0 % Lipase 11 L (13-60) units/L HCG, Qual Negative (Negative) Urine Color (Yellow) Urine Turbidity (Clear) Urine pH (5.0-7.0) Ur Specific [place] (1.003-1.030) Urine Protein (Negative) mg/dL Urine Glucose (UA) (Negative) mg/dL Urine Ketones (Negative) mg/dL Urine Blood (Negative) Urine Nitrite (Negative) Urine Bilirubin (Negative) Urine Urobilinogen (<2.0) mg/dL Ur Leukocyte Esterase (Negative) Urine WBC (Auto) (0.0-6.0) /HPF Urine RBC (Auto) (0.0-6.0) /HPF U Epithel Cells (Auto) (0-13.0) /HPF Urine Mucus /HPF 11/06/ Range/Units 20:31 WBC (4.5-11.0) K/mm3 RBC (3.65-5.03) M/mm3 Hgb (10.1-14.3) gm/dl Hct (30.3-42.9) % MCV (79-97) fl MCH (28-32) pg MCHC (30-34) % RDW (13.2-15.2) % Plt Count (140-440) K/mm3 Lymph % (Auto) (13.4-35.0) % [place] % (Auto) (0.0-7.3) % Eos % (Auto) (0.0-4.3) % Baso % (Auto) (0.0-1.8) % Lymph # (1.2-5.4) K/mm3 [place] # (0.0-0.8) K/mm3 Eos # (0.0-0.4) K/mm3 Baso # (0.0-0.1) K/mm3 Seg Neutrophils % (40.0-70.0) % Seg Neutrophils # (1.8-7.7) K/mm3 Sodium (137-145) mmol/L Potassium (3.6-5.0) mmol/L Chloride (98-107) mmol/L Carbon Dioxide (22-30) mmol/L Anion Gap mmol/L BUN (7-17) mg/dL Creatinine (0.7-1.2) mg/dL Estimated GFR ml/min BUN/Creatinine Ratio % Glucose (65-100) mg/dL Calcium (8.4-10.2) mg/dL Total Bilirubin (0.1-1.2) mg/dL AST (5-40) units/L ALT (7-56) units/L Alkaline Phosphatase (35-129) units/L Total Protein (6.3-8.2) g/dL Albumin (3.9-5) g/dL Albumin/Globulin Ratio % Lipase (13-60) units/L HCG, Qual (Negative) Urine Color Yellow (Yellow) Urine Turbidity Clear (Clear) Urine pH 6.0 (5.0-7.0) Ur Specific [place] 1.024 (1.003-1.030) Urine Protein <15 mg/dl (Negative) mg/dL Urine Glucose (UA) Neg (Negative) mg/dL Urine Ketones 20 (Negative) mg/dL Urine Blood Neg (Negative) Urine Nitrite Neg (Negative) Urine Bilirubin Neg (Negative) Urine Urobilinogen < 2.0 (<2.0) mg/dL Ur Leukocyte Esterase Neg (Negative) Urine WBC (Auto) 6.0 (0.0-6.0) /HPF Urine RBC (Auto) 2.0 (0.0-6.0) /HPF U Epithel Cells (Auto) 3.0 (0-13.0) /HPF Urine Mucus 3+ /HPF - Radiology Data Radiology results: report reviewed Print Report Referring Physician:GAUDENCIO MEJIAPatient Name:LING SPAINPatient ID:[id number] of :[id number]:FemaleAcc ession:[id number] Date:[id number] Status:[place] [address] Cat Scan Report Signed Patient: LING SPAIN MR#: [id number] : 1985 Acct:[id number] Age/Sex: 34 / F ADM Date: 11/07/19 Loc: ED Attending Dr: Ordering Physician: MC LEONG Date of Service: 11/07/19 Procedure(s): CT abdomen pelvis w con Accession Number(s): [id number] cc: MC LEONG CT abdomen pelvis w con INDICATION / CLINICAL INFORMATION: MAIN: Lower ABD Pain, 100cc [id number]. TECHNIQUE: All CT scans at this location are performed using CT dose reduction for ALARA by means of automated exposure control. COMPARISON: None available. FINDINGS: The lower lungs are clear. ABDOMEN: The gallbladder, liver, spleen, pancreas, kidneys and adrenal glands are normal. No mesenteric or retroperitoneal adenopathy. No small bowel abnormality. Pelvis: There is a 7.5 x 5.0 cm dermoid tumor in the right adnexal region. There are no acute inflammatory changes or abnormal fluid collections seen in the pelvis. No colon abnormality No skeletal findings of significance.. IMPRESSION: 1. No acute abdominal or pelvic abnormality. 2. Right ovarian dermoid tumor. Signer Name: Alonzo Woodall MD Signed: 11/07/2019 9:41 PM Workstation Name: [id number] Transcribed By: GA Dictated By: Alonzo Woodall MD Electronically Authenticated By: Alonzo Woodall MD Signed Date/Time: 11/07/192140 DD/ 35 TD/TT: - Medical Decision Making This patient presents with abdominal pain of unclear etiology. A CT scan was performed to evaluate for potential causes of the abdominal pain, however, neither the clinical exam nor the CT has identified an emergent etiology for the abdominal pain. Specifically, given the benign exam, the laboratory studies, and unremarkable CT, I have a very low suspicion for appendicitis, ischemic bowel, bowel perforation, or any other life threatening disease. I have discussed with the patient the level of uncertainty with undifferentiated abdominal pain and clearly explained the need to follow-up as noted on the discharge instructions, or return to the Emergency Department immediately if the pain worsens, develops fever, persistent and uncontrollable vomiting, or for any new symptoms or concerns. Critical care attestation.: If time is entered above; I have spent that time in minutes in the direct care of this critically ill patient, excluding procedure time. ED Disposition Clinical Impression: Abdominal pain, Dermoid cyst Disposition: -01 TO HOME OR SELFCARE Is pt being admited?: No Does the pt Need Aspirin: No Condition: Stable Instructions: Abdominal Pain (ED), Acute Nausea and Vomiting (ED), Food Poisoning (ED), Gastroenteritis (ED) Additional Instructions: Your CT scan and laboratory findings were of normal variant please be sure to follow-up with your primary care provider there was a finding of a dermoid tumor to your right ovary which recommend you follow-up with [facility] for further evaluation and treatment options Dermoid cyst of the ovary : A bizarre tumor, usually benign, in the ovary that typically contains a diversity of tissues including hair, teeth, bone, thyroid, etc. A dermoid cyst develops from a totipotential germ cell (a primary oocyte) that is retained within the egg sac (ovary). Being totipotential, that cell can give rise to all orders of cells necessary to form mature tissues and often recognizable structures such as hair, bone and sebaceous (oily) material, neural tissue and teeth. Dermoid cysts may occur at any age but the prime age of detection is in the childbearing years. The average age is 30. Up to 15% of women with ovarian teratomas have them in both ovaries. Dermoid cysts can range in size from a centimeter (less than a half inch) up to 45 cm (about 17 inches) in diameter. These cysts can cause the ovary to twist (torsion) and imperil its blood supply. The larger the dermoid cyst, the greater the risk of rupture with spillage of the greasy contents which can create problems with adhesions, pain etc. Although the large majority (about 98%) of these tumors are benign, the remaining fraction (about 2%) becomes cancerous (malignant). Removal of the dermoid cyst is usually the treatment of choice. This can be done by laparotomy (open surgery) or laparoscopy (with a scope). Torsion (twisting) of the ovary by the cyst is an emergency and calls for urgent surgery. Dermoid cysts of the ovary are also referred to as simply dermoids or ovarian teratomas. Prescriptions: Hyoscyamine Subl [Levsin Sl 0.125 TAB] 0.125 mg SL Q6HR PRN #20 tab PRN Reason: abdominal cramps and spasms Ketorolac [Toradol] 10 mg PO Q6H PRN #14 tablet PRN Reason: Pain Ondansetron [Zofran ODT TAB] 8 mg PO Q12HR #14 tab.nuria Referrals: [facility] [Provider Group] - 3-5 Days RADHA ARCHER MD [Staff Physician] - 3-5 Days [facility] [Provider Group] - 3-5 Days
[2019-11-07 20:44] LABS: Basophils % (Auto) 0.9 % (0.0-1.8); Eosinophils % (Auto) 0.6 % (0.0-4.3); Hematocrit 37.9 % (30.3-42.9); Hemoglobin 12.8 gm/dl (10.1-14.3); Lymphocytes # (Auto) 2.4 K/mm3 (1.2-5.4); Lymphocytes % (Auto) 50.4 % (13.4-35.0); Mean Corpuscular HGB Conc 34 % (30-34); Mean Corpuscular Volume 91 fl (79-97); Monocytes # (Auto) 0.3 K/mm3 (0.0-0.8); Monocytes % (Auto) 6.1 % (0.0-7.3); Platelet Count 401 K/mm3 (140-440); Red Blood Count 4.17 M/mm3 (3.65-5.03); Red Cell Distribution Width 12.8 % (13.2-15.2)
[2019-11-07 20:48] LABS: Bilirubin,Urine NEG (Negative); Blood,Urine NEG (Negative); Color,Urine Yellow (Yellow); Mucus,Urine 3+ /HPF; Protein,Urine <15 mg/dL mg/dL (Negative); Urobilinogen,Urine < 2.0 mg/dL (<2.0)
[2019-11-07 21:00] LABS: Alanine Aminotransferase 10 units/L (7-56); Albumin 3.9 g/dL (3.9-5); BUN/Creatinine Ratio 8; Blood Urea Nitrogen 5 mg/dL (7-17); Calcium 9.1 mg/dL (8.4-10.2); Hemolysis Index 7
--- NOTE | 2019-11-07 21:45 | Cat Scan Report ---
CT abdomen pelvis w con INDICATION / CLINICAL INFORMATION: MAIN: Lower ABD Pain, 100cc [id number]. TECHNIQUE: All CT scans at this location are performed using CT dose reduction for ALARA by means of automated e xposure control. COMPARISON: None available. FINDINGS: The lower lungs are clear. ABDOMEN: The gallbladder, liver, spleen, pancreas, kidneys and adrenal glands are normal. No mesenteric or retroperitoneal adenopathy. No small bowel abnormality. Pelvis: There is a 7.5 x 5.0 cm dermoid tumor in the right adnexal region. There are no acute inflammatory changes or abnormal fluid collections seen in the pelvis. No colon abnormality No skeletal findings of significance.. IMPRESSION: 1. No acute abdominal or pelvic abnormality. 2. Right ovarian dermoid tumor. Signer Name: Alonzo Woodall MD Signed: 11/07/2019 9:41 PM Workstation Name: [id number]
[2019-11-07 22:57] VITALS: BP 122/66
== END 2019-11-07 22:58 | disposition home or self-care (01) ==
LOC: ED 19:59
DX: R10.84 Generalized abdominal pain (principal); D36.9 Benign neoplasm, unspecified site; R11.2 Nausea with vomiting, unspecified; M19.91 Primary osteoarthritis, unspecified site; G43.909 Migraine, unspecified, not intractable, without status migrainosus; J45.909 Unspecified asthma, uncomplicated; Z98.890 Other specified postprocedural states; Z79.2 Long term (current) use of antibiotics; Z79.899 Other long term (current) drug therapy; Z88.0 Allergy status to penicillin
CPT/HCPCS: 36415; 74177; 80053; 81001; 83690; 84703; 85025; 96361; 96374; 96375; 99284; J1200; J2765; J7030; Q9967

== ENCOUNTER 2020-03-02 22:11 | Emergency (ER) | payer MEDICAID ==
[2020-03-02] MEDS ORDERED: LORazepam 2 MG/ML VIAL IV ONE (22:55)
[2020-03-02] MEDS ORDERED: diphenhydrAMINE 50 MG/ML VIAL IV ONE (22:55)
[2020-03-02] MEDS ORDERED: SODIUM CHLORIDE 0.9% 1000 ML 1,000 ML IV ONE (22:56)
[2020-03-02] MEDS ORDERED: diphenhydrAMINE 50 MG/ML VIAL ONE (22:58)
[2020-03-02] MEDS ORDERED: LORazepam 2 MG/ML VIAL ONE (22:58)
--- NOTE | 2020-03-02 22:58 | Emergency Department Report ---
ED Allergic Reaction HPI - General Chief complaint: Allergic Reaction Stated complaint: JITTERY JAW PROBLEM WITH SPEECH Time Seen by Provider: 03/02/20 22:54 Source: patient Mode of arrival: Ambulatory Limitations: No Limitations - History of Present Illness Initial Comments: Patient is a 34-year-old female that presents emergency room with complaints of a allergic reaction to Haldol. Patient states she took Haldol for the first time and it caused her jaw to stiffen up. Patient states she is having mild difficulty swallowing due to the jaw stiffness. Patient states she has to keep her finger in her mouth to stop her jaw from slamming shut. Patient denies rash. Patient denies shortness of breath. Patient denies difficulty breathing. Patient denies chest pain. Patient denies throat pain. Patient denies fever and chills. Patient states her symptoms started 1 hour prior to arrival. Patient denies recent travel. Patient denies recent international travel. Patient denies exposure to the novel coronavirus. Patient denies sick contacts. Patient denies fever and chills. Patient denies cough. Patient denies diarrhea. Patient denies coming in contact with anybody with symptoms of the novel coronavirus. MD Complaint: allergic reaction -: Sudden Exposure: medication Symptoms: difficulty swallowing, other (Jaw stiffness). denies: difficulty breathing, hoarseness, syncopy, dizziness Severity: severe Treatment Prior to Arrival: none - Related Data Home Medications Medication Instructions Recorded Confirmed Last Taken Clarithromycin [Biaxin] 500 mg PO BID 11/12/16 11/12/16 1 Day Ago ~11/11/16 Ferrous Sulfate [Feosol] 325 mg PO BID 11/12/16 11/12/16 1 Day Ago ~11/11/16 Potassium Citrate [Potassium 10 meq PO DAILY 11/12/16 11/12/16 1 Day Ago Citrate ER] ~11/11/16 Topiramate [Topamax] 100 mg PO BID 11/12/16 11/12/16 1 Day Ago ~11/11/16 metroNIDAZOLE [Flagyl] 500 mg PO Q12HR 11/12/16 11/12/16 11/11/16 Previous Rx's Medication Instructions Recorded Last Taken Type Famotidine [Pepcid] 20 mg PO BID #7 tablet 03/05/17 Unknown Rx Nitrofurantoin [employer]/M-Cryst 100 mg PO Q12HR #7 capsule 03/05/17 Unknown Rx [Macrobid CAP] Pramoxine HCl/Calamine [Calamine 1 applic TP DAILY #1 lotion 04/10/17 Unknown Rx Medicated Lotion] hydrOXYzine HCL [Atarax] 25 mg PO Q6HR PRN #16 tablet 04/10/17 Unknown Rx predniSONE [Deltasone] 20 mg PO BID #10 tab 04/10/17 Unknown Rx Hyoscyamine Subl [Levsin Sl 0.125 0.125 mg SL Q6HR PRN #20 tab 11/07/19 Unknown Rx TAB] Ketorolac [Toradol] 10 mg PO Q6H PRN #14 tablet 11/07/19 Unknown Rx Ondansetron [Zofran ODT TAB] 8 mg PO Q12HR #14 tab.rapdis 11/07/19 Unknown Rx Naproxen [EC-Naprosyn] 500 mg PO BID PRN #14 tablet.dr 01/14/20 Unknown Rx methOCARBAMOL [Robaxin TAB] 500 mg PO BID PRN #10 tab 01/14/20 Unknown Rx diphenhydrAMINE [Benadryl CAP] 25 mg PO Q6HR PRN #10 cap 03/03/20 Unknown Rx Allergies Allergy/AdvReac Type Severity Reaction Status Date / Time Penicillins Allergy Swelling Verified 05/20/17 20:04 ED Review of Systems ROS: Stated complaint: JITTERY JAW PROBLEM WITH SPEECH Other details as noted in HPI Constitutional: denies: chills, fever Eyes: denies: eye pain, eye discharge, vision change ENT: as per HPI. denies: ear pain, throat pain Respiratory: denies: cough, shortness of breath, wheezing Cardiovascular: denies: chest pain, palpitations Endocrine: no symptoms reported Gastrointestinal: denies: abdominal pain, nausea, diarrhea Genitourinary: denies: urgency, dysuria, discharge Musculoskeletal: denies: back pain, joint swelling, arthralgia Skin: denies: rash, lesions Neurological: denies: headache, weakness, paresthesias Psychiatric: anxiety. denies: depression Hematological/Lymphatic: denies: easy bleeding, easy bruising ED Past Medical Hx - Past Medical History Previous Medical History?: Yes Hx Hypertension: No Hx Heart Attack/AMI: No Hx Liver Disease: No Hx Renal Disease: No Hx Sickle Cell Disease: No Hx Arthritis: Yes Hx Headaches / Migraines: Yes (MIGRAINES) Hx Seizures: No Hx Psychiatric Treatment: Yes (Bipolar) Hx Asthma: Yes Hx COPD: No Hx HIV: No - Surgical History Past Surgical History?: Yes Hx Pacemaker: No Hx Internal Defibrillator: No Additional Surgical History: csection. D & C - Family History Family history: no significant - Social History Smoking Status: Current Every Day Smoker Substance Use Type: None - Medications Home Medications: Home Medications Medication Instructions Recorded Confirmed Last Taken Type Clarithromycin [Biaxin] 500 mg PO BID 11/12/16 11/12/16 1 Day Ago History ~11/11/16 Ferrous Sulfate [Feosol] 325 mg PO BID 11/12/16 11/12/16 1 Day Ago History ~11/11/16 Potassium Citrate [Potassium 10 meq PO DAILY 11/12/16 11/12/16 1 Day Ago History Citrate ER] ~11/11/16 Topiramate [Topamax] 100 mg PO BID 11/12/16 11/12/16 1 Day Ago History ~11/11/16 metroNIDAZOLE [Flagyl] 500 mg PO Q12HR 11/12/16 11/12/16 11/11/16 History Famotidine [Pepcid] 20 mg PO BID #7 tablet 03/05/17 Unknown Rx Nitrofurantoin [employer]/M-Cryst 100 mg PO Q12HR #7 capsule 03/05/17 Unknown Rx [Macrobid CAP] Pramoxine HCl/Calamine [Calamine 1 applic TP DAILY #1 lotion 04/10/17 Unknown Rx Medicated Lotion] hydrOXYzine HCL [Atarax] 25 mg PO Q6HR PRN #16 tablet 04/10/17 Unknown Rx predniSONE [Deltasone] 20 mg PO BID #10 tab 04/10/17 Unknown Rx Hyoscyamine Subl [Levsin Sl 0.125 0.125 mg SL Q6HR PRN #20 tab 11/07/19 Unknown Rx TAB] Ketorolac [Toradol] 10 mg PO Q6H PRN #14 tablet 11/07/19 Unknown Rx Ondansetron [Zofran ODT TAB] 8 mg PO Q12HR #14 tab.rapdis 11/07/19 Unknown Rx Naproxen [EC-Naprosyn] 500 mg PO BID PRN #14 01/14/20 Unknown Rx methOCARBAMOL [Robaxin TAB] 500 mg PO BID PRN #10 tab 01/14/20 Unknown Rx diphenhydrAMINE [Benadryl CAP] 25 mg PO Q6HR PRN #10 cap 03/03/20 Unknown Rx ED Physical Exam - General Limitations: No Limitations General appearance: alert, in no apparent distress - Head Head exam: Present: atraumatic, normocephalic - Eye Eye exam: Present: normal appearance - ENT ENT exam: Present: mucous membranes moist - Neck Neck exam: Present: normal inspection - Respiratory Respiratory exam: Present: normal lung sounds bilaterally. Absent: respiratory distress - Cardiovascular Cardiovascular Exam: Present: regular rate, normal rhythm. Absent: systolic murmur, diastolic murmur, rubs, gallop - GI/Abdominal GI/Abdominal exam: Present: soft, normal bowel sounds - Extremities Exam Extremities exam: Present: normal inspection - Back Exam Back exam: Present: normal inspection - Neurological Exam Neurological exam: Present: alert, oriented X3 - Psychiatric Psychiatric exam: Present: normal affect, normal mood - Skin Skin exam: Present: warm, dry, intact, normal color. Absent: rash ED Course Vital Signs 03/02/20 03/02/20 03/02/20 22:46 22:47 23:00 Temperature 98 F 98.5 F Pulse Rate 115 H 115 H Respiratory 20 22 Rate Blood Pressure 102/85 102/85 O2 Sat by Pulse 94 94 99 Oximetry 03/02/20 03/02/20 03/02/20 23:16 23:30 23:46 Temperature Pulse Rate Respiratory Rate Blood Pressure O2 Sat by Pulse 97 99 99 Oximetry 03/03/20 03/03/20 00:00 00:16 Temperature Pulse Rate Respiratory Rate Blood Pressure O2 Sat by Pulse 100 99 Oximetry - Reevaluation(s) Reevaluation #1: Initial evaluation done. Patient will be given Benadryl and Ativan. Patient will also have labs and an IV started. 03/02/20 22:58 Reevaluation #2: Patient states she is feeling better. Patient states her jaw stiffness has resolved 03/02/20 23:15 Reevaluation #3: Patient resting but easily arousable. Patient states she is feeling much better. Patient denies any pain. Patient denies difficulty swallowing. Patient denies throat pain. Patient denies difficulty breathing. Patient denies chest pain. Patient denies jaw stiffness. 03/02/20 23:43 Reevaluation #4: Patient states all her symptoms have resolved. 03/03/20 00:57 ED Medical Decision Making - Lab Data Result diagrams: 03/02/20 23:06 03/02/20 23:06 - Medical Decision Making Patient is a 34-year-old female that presents emergency room with jaw stiffness after taking Haldol. Patient clinical findings are consistent with tardive dyskinesia and a panic attack. Patient given Ativan and Benadryl and all of her symptoms resolved. Patient became asymptomatic within 20 minutes of the medication and remained asymptomatic all the way through discharge. Patient instructed to not take Haldol and follow-up with the prescribed medication. Patient had labs done which were unremarkable. Patient responded well to treatment. Patient stable for discharge. Patient does not require any further emergency medical or inpatient services. Patient stable for discharge. Patient discharged home. - Differential Diagnosis Dyskinesia, allergic reaction, jaw pain, panic attack Critical Care Time: Yes Critical care time in (mins) excluding proc time.: 35 Critical care attestation.: If time is entered above; I have spent that time in minutes in the direct care of this critically ill patient, excluding procedure time. Critical Care Time: 35 MINUTES ED Disposition Clinical Impression: Jaw pain, Tardive dyskinesia, Panic attack Medication reaction Qualifiers: Encounter type: initial encounter Qualified Code(s): T50.905A - Adverse effect of unspecified drugs, medicaments and biological substances, initial encounter Disposition: DC-01 TO HOME OR SELFCARE Is pt being admited?: No Does the pt Need Aspirin: No Condition: Stable Instructions: Haloperidol (Injection), Panic Disorder (ED), Adverse Drug Reaction (ED), Anxiety (ED) Additional Instructions: Patient to follow-up with primary care in 2 to 3 days. Patient to follow-up with psychiatrist or the physician that prescribed Haldol in 2 to 3 days. Patient to rest. Patient to increase water. Patient to avoid Haldol use. Patient to take Tylenol or ibuprofen as needed for pain. Patient to take meds as directed. Patient to return to the ER if condition worsens, changes or new symptoms arise. Prescriptions: diphenhydrAMINE [Benadryl CAP] 25 mg PO Q6HR PRN #10 cap PRN Reason: JAW STIFFNESS [facility] [Primary Care Provider[facility] - 2-3 Days Time of Disposition: 01:10
[2020-03-02 23:32] LABS: Hematocrit 36.6 % (30.3-42.9); Hemoglobin 13.1 gm/dl (10.1-14.3); Mean Corpuscular HGB Conc 36 % (30-34); Mean Corpuscular Volume 92 fl (79-97); Platelet Count 310 K/mm3 (140-440); Red Blood Count 3.98 M/mm3 (3.65-5.03); Red Cell Distribution Width 13.2 % (13.2-15.2)
[2020-03-02 23:51] LABS: Alanine Aminotransferase 14 units/L (7-56); Blood Urea Nitrogen 5 mg/dL (7-17); Calcium 9.2 mg/dL (8.4-10.2); Hemolysis Index 3
[2020-03-03 00:05] LABS: BUN/Creatinine Ratio 8
[2020-03-03 01:21] VITALS: BP 143/93
== END 2020-03-03 01:22 | disposition home or self-care (01) ==
LOC: ED 22:11
DX: R68.84 Jaw pain (principal); T42.4X5A Adverse effect of benzodiazepines, initial encounter; G24.01 Drug induced subacute dyskinesia; F41.0 Panic disorder [episodic paroxysmal anxiety]; M19.91 Primary osteoarthritis, unspecified site; G43.909 Migraine, unspecified, not intractable, without status migrainosus; F31.9 Bipolar disorder, unspecified; J45.909 Unspecified asthma, uncomplicated; F17.200 Nicotine dependence, unspecified, uncomplicated; Z98.890 Other specified postprocedural states; Z79.2 Long term (current) use of antibiotics; Z79.899 Other long term (current) drug therapy; Z88.0 Allergy status to penicillin; Y92.89 Other specified places as the place of occurrence of the external cause
CPT/HCPCS: 36415; 80053; 85027; 96361; 96374; 96375; 99283; J1200; J2060; J7030

== ENCOUNTER 2020-04-19 04:13 | Emergency (ER) | payer MEDICAID ==
[2020-04-19 05:07] VITALS: BP 109/78
== END 2020-04-19 07:45 | disposition left against medical advice (07) ==
LOC: ED 04:13
DX: M54.9 Dorsalgia, unspecified (principal); Z53.21 Procedure and treatment not carried out due to patient leaving prior to being seen by health care provider

== ENCOUNTER 2020-04-19 16:44 | Observation (INO) | payer MEDICAID ==
--- NOTE | 2020-04-19 19:19 | Emergency Department Report ---
ED Back Pain/Injury HPI - General Chief Complaint: Back Pain/Injury Stated Complaint: CHEST TIGHT, BACK PAIN, VOMITING Source: patient Limitations: No Limitations - History of Present Illness Initial Comments: Patient belongs to Doc Meza not my patient MD Complaint: back pain - Related Data Home Medications Medication Instructions Recorded Confirmed Last Taken Ferrous Sulfate [Feosol 325 MG tab] 325 mg PO BID 11/12/16 11/12/16 1 Day Ago ~11/11/16 Previous Rx's Medication Instructions Recorded Last Taken Type Famotidine [Pepcid] 20 mg PO BID #7 tablet 03/05/17 Unknown Rx Pramoxine HCl/Calamine [Calamine 1 applic TP DAILY #1 lotion 04/10/17 Unknown Rx Medicated Lotion] hydrOXYzine HCL [Atarax] 25 mg PO Q6HR PRN #16 tablet 04/10/17 Unknown Rx Hyoscyamine Subl [Levsin Sl 0.125 0.125 mg SL Q6HR PRN #20 tab 11/07/19 Unknown Rx TAB] Ketorolac [Toradol] 10 mg PO Q6H PRN #14 tablet 04/20/20 Unknown Rx Topiramate [Topamax] 100 mg PO BID #30 tab 04/20/20 Unknown Rx methOCARBAMOL [Robaxin TAB] 500 mg PO BID PRN #10 tab 04/20/20 Unknown Rx Allergies Allergy/AdvReac Type Severity Reaction Status Date / Time Penicillins Allergy Swelling Verified 05/20/17 20:04 ED Review of Systems ROS: Stated complaint: CHEST TIGHT, BACK PAIN, VOMITING Other details as noted in HPI ED Past Medical Hx - Past Medical History Previous Medical History?: Yes Hx Hypertension: No Hx Heart Attack/AMI: No Hx Liver Disease: No Hx Renal Disease: No Hx Sickle Cell Disease: No Hx Arthritis: Yes Hx Headaches / Migraines: Yes (MIGRAINES) Hx Seizures: No Hx Psychiatric Treatment: Yes (Bipolar) Hx Asthma: Yes Hx COPD: No Hx HIV: No - Surgical History Past Surgical History?: Yes Hx Pacemaker: No Hx Internal Defibrillator: No Additional Surgical History: csection. D & C - Social History Smoking Status: Never Smoker Substance Use Type: None - Medications Home Medications: Home Medications Medication Instructions Recorded Confirmed Last Taken Type Ferrous Sulfate [Feosol 325 MG tab] 325 mg PO BID 11/12/16 11/12/16 1 Day Ago History ~11/11/16 Famotidine [Pepcid] 20 mg PO BID #7 tablet 03/05/17 Unknown Rx Pramoxine HCl/Calamine [Calamine 1 applic TP DAILY #1 lotion 04/10/17 Unknown Rx Medicated Lotion] hydrOXYzine HCL [Atarax] 25 mg PO Q6HR PRN #16 tablet 04/10/17 Unknown Rx Hyoscyamine Subl [Levsin Sl 0.125 0.125 mg SL Q6HR PRN #20 tab 11/07/19 Unknown Rx TAB] Ketorolac [Toradol] 10 mg PO Q6H PRN #14 tablet 04/20/20 Unknown Rx Topiramate [Topamax] 100 mg PO BID #30 tab 04/20/20 Unknown Rx methOCARBAMOL [Robaxin TAB] 500 mg PO BID PRN #10 tab 04/20/20 Unknown Rx ED Physical Exam - General Limitations: No Limitations ED Course Vital Signs 04/19/20 04/20/20 19:05 07:20 Temperature 98.7 F 98.1 F Pulse Rate 67 86 Respiratory 18 16 Rate Blood Pressure 136/93 Blood Pressure 128/64 [Left] O2 Sat by Pulse 100 99 Oximetry ED Medical Decision Making - Lab Data Result diagrams: 04/20/20 04:38 04/20/20 04:38 - Medical Decision Making Patient belongs to Cristian Garrison I am not the primary provider for this patient please refer to his note for the treatment and disposition of Ms. Maggie Hastings Critical care attestation.: If time is entered above; I have spent that time in minutes in the direct care of this critically ill patient, excluding procedure time. ED Disposition Clinical Impression: Acute low back pain without sciatica, Migraine headache without aura, Spasm of muscle of lower back, Acute hypernatremia Disposition: Z-01 MED SCREENING EXAM-CONT Is pt being admited?: No Does the pt Need Aspirin: No
[2020-04-19 19:55] LABS: Bilirubin,Urine NEG (Negative); Blood,Urine NEG (Negative); Color,Urine Amber (Yellow); Mucus,Urine 3+ /HPF
[2020-04-19] MEDS ORDERED: KETOROLAC 30 MG/1 ML INJ IM ONE (20:14)
[2020-04-19] MEDS ORDERED: dexAMETHasone 20 MG/5 ML VIAL IM ONE (20:14)
[2020-04-19] MEDS ORDERED: HYDROcodone/ACETAMINOPHEN 5-325 MG TAB PO ONE (20:15)
[2020-04-19] MEDS ORDERED: ONDANSETRON 4 MG ODT TAB PO ONE (20:15)
[2020-04-19 21:08] LABS: Basophils % (Auto) 0.6 % (0.0-1.8); Eosinophils % (Auto) 0.4 % (0.0-4.3); Hematocrit 37.8 % (30.3-42.9); Hemoglobin 12.5 gm/dl (10.1-14.3); Lymphocytes % (Auto) 26.6 % (13.4-35.0); Mean Corpuscular HGB Conc 33 % (30-34); Mean Corpuscular Volume 92 fl (79-97); Monocytes # (Auto) 0.5 K/mm3 (0.0-0.8); Monocytes % (Auto) 6.9 % (0.0-7.3); Platelet Count 300 K/mm3 (140-440); Red Blood Count 4.11 M/mm3 (3.65-5.03)
[2020-04-19 21:26] LABS: Alanine Aminotransferase 39 units/L (7-56); Albumin 4.2 g/dL (3.9-5); BUN/Creatinine Ratio 19; Blood Urea Nitrogen 17 mg/dL (7-17); Calcium 9.9 mg/dL (8.4-10.2); Hemolysis Index 8
--- NOTE | 2020-04-19 22:02 | Emergency Department Report ---
ED Back Pain/Injury HPI - General Chief Complaint: Back Pain/Injury Stated Complaint: CHEST TIGHT, BACK PAIN, VOMITING Source: patient Limitations: No Limitations - History of Present Illness Initial Comments: Patient is a 34-year-old -Italian female with a history of bipolar disorder, chronic osteoarthritis, migraine headaches and asthma who presents to the ED with complaint of acute onset persistent nontraumatic low back pain, nausea and vomiting, persistent headache and chest tightness for the last 1 month, worse in the last 1 week. 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 Patient states that in the last 2 days especially her symptoms are worsened such that she has not been able to eat or sleep because of pain in her low back. Patient states that she has been taking [id number] medications for pain with no relief. Patient denies syncope, fall, traumatic injury, dysuria, urinary frequency and urgency, fever, chills, cough, shortness of breath, change in vision, palpitation, neck pain, numbness and tingling or weakness of lower extremities bilaterally, urinary or bowel incontinence, abdominal pain, saddle paresthesia or vaginal bleeding and diarrhea. MD Complaint: back pain, other (Headache, nausea and vomiting and chest tightness) -: Sudden, month(s) (1) Similar Symptoms Previously: Yes Place: work Radiation: none Severity: severe Severity scale (0 -10): 8 Quality: sharp, aching Consistency: constant Improves With: none Worsens With: movement, sitting upright, walking Context: while lifting, turning/twisting Associated Symptoms: denies other symptoms, chest pain (Tightness). denies: confusion, weakness, numbness, difficulty walking, cough, difficulty urinating, diaphoresis, incontinence, fever/chills, constipation, headaches, abdominal pain, loss of appetite, malaise, nausea/vomiting, rash, shortness of breath, syncope - Related Data Home Medications Medication Instructions Recorded Confirmed Last Taken Clarithromycin [Biaxin] 500 mg PO BID 11/12/16 11/12/16 1 Day Ago ~11/11/16 Ferrous Sulfate [Feosol] 325 mg PO BID 11/12/16 11/12/16 1 Day Ago ~11/11/16 Potassium Citrate [Potassium 10 meq PO DAILY 11/12/16 11/12/16 1 Day Ago Citrate ER] ~11/11/16 Topiramate [Topamax] 100 mg PO BID 11/12/16 11/12/16 1 Day Ago ~11/11/16 metroNIDAZOLE [Flagyl] 500 mg PO Q12HR 11/12/16 11/12/16 11/11/16 Previous Rx's Medication Instructions Recorded Last Taken Type Famotidine [Pepcid] 20 mg PO BID #7 tablet 03/05/17 Unknown Rx Nitrofurantoin [place]/M-Cryst 100 mg PO Q12HR #7 capsule 03/05/17 Unknown Rx [Macrobid CAP] Pramoxine HCl/Calamine [Calamine 1 applic TP DAILY #1 lotion 04/10/17 Unknown Rx Medicated Lotion] hydrOXYzine HCL [Atarax] 25 mg PO Q6HR PRN #16 tablet 04/10/17 Unknown Rx predniSONE [Deltasone] 20 mg PO BID #10 tab 04/10/17 Unknown Rx Hyoscyamine Subl [Levsin Sl 0.125 0.125 mg SL Q6HR PRN #20 tab 11/07/19 Unknown Rx TAB] Ketorolac [Toradol] 10 mg PO Q6H PRN #14 tablet 11/07/19 Unknown Rx Ondansetron [Zofran ODT TAB] 8 mg PO Q12HR #14 tab.rapdis 11/07/19 Unknown Rx Naproxen [EC-Naprosyn] 500 mg PO BID PRN #14 tablet.dr 01/14/20 Unknown Rx methOCARBAMOL [Robaxin TAB] 500 mg PO BID PRN #10 tab 01/14/20 Unknown Rx diphenhydrAMINE [Benadryl CAP] 25 mg PO Q6HR PRN #10 cap 03/03/20 Unknown Rx Allergies Allergy/AdvReac Type Severity Reaction Status Date / Time Penicillins Allergy Swelling Verified 05/20/17 20:04 ED Review of Systems ROS: Stated complaint: CHEST TIGHT, BACK PAIN, VOMITING Other details as noted in HPI Constitutional: malaise, weakness. denies: chills, fever Eyes: denies: eye pain, eye discharge, vision change ENT: denies: ear pain, throat pain Respiratory: denies: cough, shortness of breath, wheezing Cardiovascular: chest pain (tightness). denies: palpitations Endocrine: no symptoms reported Gastrointestinal: nausea, vomiting. denies: abdominal pain, diarrhea Genitourinary: denies: urgency, dysuria, discharge Musculoskeletal: back pain (low back pain). denies: joint swelling, arthralgia Skin: denies: rash, lesions Neurological: headache. denies: weakness, paresthesias Psychiatric: denies: anxiety, depression Hematological/Lymphatic: denies: easy bleeding, easy bruising ED Past Medical Hx - Past Medical History Previous Medical History?: Yes Hx Hypertension: No Hx Heart Attack/AMI: No Hx Liver Disease: No Hx Renal Disease: No Hx Sickle Cell Disease: No Hx Arthritis: Yes Hx Headaches / Migraines: Yes (MIGRAINES) Hx Seizures: No Hx Psychiatric Treatment: Yes (Bipolar) Hx Asthma: Yes Hx COPD: No Hx HIV: No - Surgical History Past Surgical History?: Yes Hx Pacemaker: No Hx Internal Defibrillator: No Additional Surgical History: csection. D & C - Social History Smoking Status: Never Smoker Substance Use Type: None - Medications Home Medications: Home Medications Medication Instructions Recorded Confirmed Last Taken Type Clarithromycin [Biaxin] 500 mg PO BID 11/12/16 11/12/16 1 Day Ago History ~11/11/16 Ferrous Sulfate [Feosol] 325 mg PO BID 11/12/16 11/12/16 1 Day Ago History ~11/11/16 Potassium Citrate [Potassium 10 meq PO DAILY 11/12/16 11/12/16 1 Day Ago History Citrate ER] ~11/11/16 Topiramate [Topamax] 100 mg PO BID 11/12/16 11/12/16 1 Day Ago History ~11/11/16 metroNIDAZOLE [Flagyl] 500 mg PO Q12HR 11/12/16 11/12/16 11/11/16 History Famotidine [Pepcid] 20 mg PO BID #7 tablet 03/05/17 Unknown Rx Nitrofurantoin [place]/M-Cryst 100 mg PO Q12HR #7 capsule 03/05/17 Unknown Rx [Macrobid CAP] Pramoxine HCl/Calamine [Calamine 1 applic TP DAILY #1 lotion 04/10/17 Unknown Rx Medicated Lotion] hydrOXYzine HCL [Atarax] 25 mg PO Q6HR PRN #16 tablet 04/10/17 Unknown Rx predniSONE [Deltasone] 20 mg PO BID #10 tab 11/02/17 Unknown Rx Hyoscyamine Subl [Levsin Sl 0.125 0.125 mg SL Q6HR PRN #20 tab 11/07/19 Unknown Rx TAB] Ketorolac [Toradol] 10 mg PO Q6H PRN #14 tablet 11/07/19 Unknown Rx Ondansetron [Zofran ODT TAB] 8 mg PO Q12HR #14 tab.rapdis 11/07/19 Unknown Rx Naproxen [EC-Naprosyn] 500 mg PO BID PRN #14 tablet.dr 01/14/20 Unknown Rx methOCARBAMOL [Robaxin TAB] 500 mg PO BID PRN #10 tab 01/14/20 Unknown Rx diphenhydrAMINE [Benadryl CAP] 25 mg PO Q6HR PRN #10 cap 03/03/20 Unknown Rx ED Physical Exam - General Limitations: No Limitations General appearance: alert, in no apparent distress - Head Head exam: Present: atraumatic, normocephalic, normal inspection - Eye Eye exam: Present: normal appearance, PERRL, EOMI Pupils: Present: normal accommodation - ENT ENT exam: Present: normal exam, normal orophraynx, mucous membranes moist, TM's normal bilaterally, normal external ear exam - Neck Neck exam: Present: normal inspection, full ROM - Respiratory Respiratory exam: Present: normal lung sounds bilaterally. Absent: respiratory distress, wheezes, rhonchi, stridor, chest wall tenderness, accessory muscle use, decreased breath sounds, other - Cardiovascular Cardiovascular Exam: Present: regular rate, normal rhythm, normal heart sounds. Absent: systolic murmur, diastolic murmur, rubs, gallop - GI/Abdominal GI/Abdominal exam: Present: soft, normal bowel sounds. Absent: tenderness, guarding, rebound, hyperactive bowel sounds, hypoactive bowel sounds, organomegaly - Extremities Exam Extremities exam: Present: normal inspection, full ROM, normal capillary refill - Back Exam Back exam: Present: normal inspection, full ROM, tenderness (Palpable lumbosacral paraspinal musculoskeletal tenderness), muscle spasm, paraspinal tenderness - Neurological Exam Neurological exam: Present: alert, oriented X3, CN II-XII intact, normal gait, reflexes normal - Psychiatric Psychiatric exam: Present: normal affect, normal mood - Skin Skin exam: Present: warm, dry, intact, normal color. Absent: rash ED Course Vital Signs 04/19/20 19:05 Temperature 98.7 F Pulse Rate 67 Respiratory 18 Rate Blood Pressure 136/93 O2 Sat by Pulse 100 Oximetry ED Medical Decision Making - Lab Data Result diagrams: 04/19/20 20:41 04/19/20 20:41 - EKG Data EKG shows normal: sinus rhythm Rate: normal - EKG Data Interpretation: normal EKG 04/19/20 22:41 EKG shows normal sinus rhythm with a ventricular rate of [address] or T wave abnormalities - Radiology Data Radiology results: report reviewed, image reviewed Findings [facility] [address] [place] [address] XRay Report Signed Patient: LING SPAIN MR#: [id number] : 1985 Acct:[id number] Age/Sex: 34 / F ADM Date: 04/19/20 Loc: ED Attending Dr: Ordering Physician: MC FOWLER Date of Service: 04/19/20 Procedure(s): XR chest routine 2V Accession Number(s): [id number] cc: [facility] FOWLER Fluoro Time In Minutes: CHEST 2 VIEWS INDICATION / CLINICAL INFORMATION: Chest tightness, poor appetite, nausea, back pain. COMPARISON: CTA chest dated 03/11/2014. FINDINGS: SUPPORT DEVICES: None. HEART / MEDIASTINUM: No significant abnormality. LUNGS / PLEURA: No significant pulmonary or pleural abnormality. No pneumothorax. ADDITIONAL FINDINGS: No significant additional findings. IMPRESSION: No acute cardiopulmonary abnormality. Signer Name: Vani Blair MD Signed: 04/19/2020 10:36 PM Workstation Name: [id number] Transcribed By: SS Dictated By: VANI BLAIR Electronically Authenticated By: VANI BLAIR Signed Date/Time: 04/19/202235 DD/ 33 TD/TT: - Medical Decision Making This is a 34-year-old -Italian female with a history of bipolar disorder, chronic osteoarthritis, migraine headaches and asthma who presents to the ED with complaint of acute onset persistent nontraumatic low back pain, nausea and vomiting, persistent headache and chest tightness for the last 1 month, worse in the last 1 week. 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 Patient states that in the last 2 days especially her symptoms are worsened such that she has not been able to eat or sleep because of pain in her low back. Patient states that she has been taking [id number] medications for pain with no relief. In the ED, patient is alert and oriented x3 and is not in distress with normal vital signs. Patient was treated for pain in the ED and urinalysis is unremarkable. Other lab test results showed acute hypernatremia of 165 mmol/L and acute hyperchloremia of 123.1 mmol/L the rest of the lab test results are nonactionable. Chest x-ray shows no acute cardiopulmonary abnormalities or pneumonitis. Patient's case was discussed with the ED attending physician Dr. Meza who advised that the patient be admitted to the hospital for further evaluation and treatment by the hospitalist team. Patient was therefore started on LR 1 L at 100 mL/hr. I paged and discussed the patient's case with the hospitalist physician on-call Dr. Thao who admitted the patient to the hospital. Dr. Thao also advised that the printed circuit board designer on-call be paged to be on board with the patient's care. I therefore paged and discussed the patient's case with the printed circuit board designer on-call who advised that the patient be hydrated in the ED upon admission due to her acute hypernatremia. Patient was therefore admitted in the hospital for further evaluation and treatment. - Differential Diagnosis Hypernatremia; muscle spasm; back pain; muscle strain; Critical care attestation.: If time is entered above; I have spent that time in minutes in the direct care of this critically ill patient, excluding procedure time. ED Disposition Clinical Impression: Spasm of muscle of lower back, Acute hypernatremia Acute low back pain without sciatica Qualifiers: Back pain laterality: bilateral Qualified Code(s): M54.5 - Low back pain Migraine headache without aura Qualifiers: Status migrainosus presence: without status migrainosus Intractability: not intractable Qualified Code(s): G43.009 - Migraine without aura, not intractable, without status migrainosus Disposition: OP ADMIT IP TO THIS HOSP Is pt being admited?: Yes Does the pt Need Aspirin: No Condition: Stable Instructions: Muscle Cramps and Spasms, [id number], Hypernatremia, [id number], Migraine Headache, [id number] Referrals: LIUDMILA JEWELL MD [Primary Care Provider] - 3-5 Days Time of Disposition: 22:40 Print Language: CONGOLESE
--- NOTE | 2020-04-19 22:41 | XRay Report ---
CHEST 2 VIEWS INDICATION / CLINICAL INFORMATION: Chest tightness, poor appetite, nausea, back pain. COMPARISON: CTA chest dated 03/11/2014. FINDINGS: SUPPORT DEVICES: None. HEART / MEDIASTINUM: No significant abnormality. LUNGS / PLEURA: No significant pulmonary or pleural abnormality. No pneumothorax. ADDITIONAL FINDINGS: No significant additional findings. IMPRESSION: No acute cardiopulmonary abnormality. Signer Name: Martin Blair MD Signed: 04/19/2020 10:36 PM Workstation Name: [id number]
[2020-04-19] MEDS ORDERED: LACTATED RINGERS 1,000 ML IV SCH (23:00)
[2020-04-19] MEDS ORDERED: D5W/0.9% NACL 1,000 ML IV SCH (23:45)
[2020-04-19] MEDS ORDERED: ACETAMINOPHEN 325 MG TAB PO PRN (23:49)
[2020-04-19] MEDS ORDERED: ONDANSETRON 4 MG/2 ML INJ IV PRN (23:49)
[2020-04-19] MEDS ORDERED: MAGNESIUM HYDROXIDE (MOM) ORAL LIQD UDC PO PRN (23:49)
[2020-04-19] MEDS ORDERED: MORPHINE 2 MG/1 ML INJ IV PRN (23:49)
--- NOTE | 2020-04-19 23:56 | History and Physical Report ---
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 She also has a son who is mentally challenged at home which she indicates that she lifts pretty often. She otherwise has not had any injury to her back or had any fall. Over the past few days she has had constant back pain, headache and has had nausea and vomiting. Headache has been persistent lately. She has taken some jayh-fws-[id number] medication without any significant improvement. She denies any fever or chills no shortness of breath, no abdominal pain, no hematuria or dysuria, denies any urinary or fecal incontinence, denies any numbness or tingling sensations in the extremities. Work-up in the emergency room today, labs reveals hypernatremia of 165. Patient was started on IV fluid in the emergency room and a consult was also placed by the ER physician to the regional account director. Recommendation is to give patient IV fluid and she will be promptly evaluated. Past History Past Medical History: migraines, other (Anxiety, Bipolar disorder) Past Surgical History: , Other (D&C) Social history: no significant social history Family history: no significant family history Medications and Allergies Allergies Allergy/AdvReac Type Severity Reaction Status Date / Time Penicillins Allergy Swelling Verified 05/20/17 20:04 Home Medications Medication Instructions Recorded Confirmed Last Taken Type Clarithromycin [Biaxin] 500 mg PO BID 11/12/16 11/12/16 1 Day Ago History ~11/11/16 Ferrous Sulfate [Feosol] 325 mg PO BID 11/12/16 11/12/16 1 Day Ago History ~11/11/16 Potassium Citrate [Potassium 10 meq PO DAILY 11/12/16 11/12/16 1 Day Ago History Citrate ER] ~11/11/16 Topiramate [Topamax] 100 mg PO BID 11/12/16 11/12/16 1 Day Ago History ~11/11/16 metroNIDAZOLE [Flagyl] 500 mg PO Q12HR 11/12/16 11/12/16 11/11/16 History Famotidine [Pepcid] 20 mg PO BID #7 tablet 03/05/17 Unknown Rx Nitrofurantoin [place]/M-Cryst 100 mg PO Q12HR #7 capsule 03/05/17 Unknown Rx [Macrobid CAP] Pramoxine HCl/Calamine [Calamine 1 applic TP DAILY #1 lotion 04/10/17 Unknown Rx Medicated Lotion] hydrOXYzine HCL [Atarax] 25 mg PO Q6HR PRN #16 tablet 04/10/17 Unknown Rx predniSONE [Deltasone] 20 mg PO BID #10 tab 04/10/17 Unknown Rx Hyoscyamine Subl [Levsin Sl 0.125 0.125 mg SL Q6HR PRN #20 tab 11/07/19 Unknown Rx TAB] Ketorolac [Toradol] 10 mg PO Q6H PRN #14 tablet 11/07/19 Unknown Rx Ondansetron [Zofran ODT TAB] 8 mg PO Q12HR #14 tab.rapdis 11/07/19 Unknown Rx Naproxen [EC-Naprosyn] 500 mg PO BID PRN #14 tablet.dr 01/14/20 Unknown Rx methOCARBAMOL [Robaxin TAB] 500 mg PO BID PRN #10 tab 01/14/20 Unknown Rx diphenhydrAMINE [Benadryl CAP] 25 mg PO Q6HR PRN #10 cap 03/03/20 Unknown Rx Active Meds: Active Medications Lactated Ringer's (Lactated Ringers) 1,000 mls @ 100 mls/hr IV DIRECT NARCISO Review of Systems Constitutional: no fever, no chills Ears, nose, mouth and throat: no nasal congestion, no sore throat Cardiovascular: no chest pain, no palpitations Respiratory: no cough, no shortness of breath Gastrointestinal: nausea, vomiting, no abdominal pain, no diarrhea Genitourinary Female: no pelvic pain, no dysuria, no hematuria Musculoskeletal: low back pain, no neck pain Integumentary: no rash, no pruritis Neurological: headaches, no syncope, no confusion Psychiatric: no anxiety, no depression Exam - Constitutional Vitals: Temp Pulse Resp BP Pulse Ox 98.7 F 67 18 136/93 100 04/19/20 19:05 04/19/20 19:05 04/19/20 19:05 04/19/20 19:05 04/19/20 19:05 General appearance: Present: no acute distress, well-nourished - EENT Eyes: Present: PERRL, EOM intact. Absent: scleral icterus ENT: hearing intact, clear oral mucosa, dentition normal - Neck Neck: Present: supple, normal ROM - Respiratory Respiratory effort: normal Respiratory: bilateral: CTA - Cardiovascular Rhythm: regular Heart Sounds: Present: S1 & S2. Absent: gallop, systolic murmur, diastolic murmur, rub - Extremities Extremities: no ischemia, pulses intact, pulses symmetrical, No edema, Full ROM Peripheral Pulses: within normal limits - Abdominal General gastrointestinal: Present: soft, non-tender, non-distended, normal bowel sounds. Absent: mass - Integumentary Integumentary: Present: clear, warm, dry - Musculoskeletal Musculoskeletal: strength equal bilaterally - Psychiatric Psychiatric: appropriate mood/affect, intact judgment & insight, memory intact, cooperative - Neurologic Neurologic: CNII-XII intact, no focal deficits, moves all extremities HEART Score - HEART Score Troponin: Troponin T < 0.010 ng/mL (0.00-0.029) 04/19/20 22:17 Results - Labs CBC & Chem 7: 04/19/20 20:41 04/19/20 20:41 Labs: Abnormal lab results 04/19/20 04/19/20 04/19/20 Range/Units 19:25 20:41 20:41 RDW 13.0 L (13.2-15.2) % Sodium 165 H* (137-145) mmol/L Chloride 123.1 H (98-107) mmol/L Carbon Dioxide 20 L (22-30) mmol/L Urine WBC (Auto) 8.0 H (0.0-6.0) /HPF Assessment and Plan - Patient Problems (1) Acute hypernatremia Current Visit: Yes Status: Acute Plan to address problem: Etiology is unclear. Will hydrate with IV fluid. We will check urine electrolytes and serum osmolality. We will await nephrology input. (2) Acute low back pain without sciatica Current Visit: Yes Status: Acute Qualifiers: Back pain laterality: bilateral Qualified Code(s): M54.5 - Low back pain Plan to address problem: Patient has known history of chronic back pain. She also admits that she has been doing some heavy lifting at work and at home. We will give analgesic medication as needed. Will consider checking MRI of lumbosacral spine if no improvement (3) Migraine headache without aura Current Visit: Yes Status: Acute Qualifiers: Status migrainosus presence: without status migrainosus Intractability: not intractable Qualified Code(s): G43.009 - Migraine without aura, not intractabl e, without status migrainosus Plan to address problem: We will continue on analgesic medication as needed. We will place a consult to neurology for evaluation consider MRI of the brain if needed (4) DVT prophylaxis Current Visit: Yes Status: Acute Plan to address problem: Patient placed on subcutaneous Lovenox. (5) Full code status Current Visit: Yes Status: Acute
[2020-04-20 05:31] LABS: Hematocrit 39.8 % (30.3-42.9); Hemoglobin 13.5 gm/dl (10.1-14.3); Mean Corpuscular HGB Conc 34 % (30-34); Mean Corpuscular Volume 92 fl (79-97); Platelet Count 317 K/mm3 (140-440); Red Blood Count 4.34 M/mm3 (3.65-5.03)
[2020-04-20 05:38] LABS: INR 1.03 (0.87-1.13)
[2020-04-20 05:48] LABS: Blood Urea Nitrogen 8 mg/dL (7-17); Calcium 9.9 mg/dL (8.4-10.2); Hemolysis Index 8
[2020-04-20 05:49] LABS: BUN/Creatinine Ratio 11
[2020-04-20 06:22] LABS: Total Cells Counted 100
[2020-04-20 06:23] LABS: Basophils % (Manual) 0 % (0.0-1.8); Eosinophils % (Manual) 0 % (0.0-4.3); Platelet Estimate Consistent w Auto; RBC Morphology Normal
[2020-04-20] MEDS ORDERED: ONDANSETRON 4 MG/2 ML INJ ONE (07:23)
[2020-04-20] MEDS ORDERED: MORPHINE 2 MG/1 ML INJ ONE (07:26)
[2020-04-20] MEDS ORDERED: KETOROLAC 10 MG TAB PO PRN (07:55)
[2020-04-20] MEDS ORDERED: oxyCODONE /ACETAMINOPHEN 5-325MG TAB PO PRN (07:56)
[2020-04-20] MEDS ORDERED: TOPIRAMATE TAB 100 MG TAB PO SCH (10:00)
[2020-04-20] MEDS ORDERED: FERROUS SULFATE 325 MG TAB PO SCH (10:00)
[2020-04-20] MEDS ORDERED: FAMOTIDINE 20 MG TAB PO SCH (10:00)
--- NOTE | 2020-04-20 11:30 | Consultation ---
History of Present Illness - Reason for Consult Consult date: 04/20/20 hypernatremia - History of Present Illness Mrs. Hastings is a 34yo who presents to the ED with back pain. She reports that back pain is chronic but has progressively worsened. She denies fever, chills. She denies bladder/bowel incontinence. Pain is constant - not exacerbated with supine position. She denies leg weakness. She reports occasional paresthesia Labs were notable for Na 165 prompting nephrology consultation. She denies N/V and diarrhea. Repeat Na 141. Past History Past Medical History: migraines, other (Anxiety, Bipolar disorder) Past Surgical History: , Other (D&C) Social history: no significant social history Family history: no significant family history Medications and Allergies Allergies Allergy/AdvReac Type Severity Reaction Status Date / Time Penicillins Allergy Swelling Verified 05/20/17 20:04 Home Medications Medication Instructions Recorded Confirmed Last Taken Type Ferrous Sulfate [Feosol 325 MG tab] 325 mg PO BID 11/12/16 11/12/16 1 Day Ago History ~11/11/16 Famotidine [Pepcid] 20 mg PO BID #7 tablet 03/05/17 Unknown Rx Pramoxine HCl/Calamine [Calamine 1 applic TP DAILY #1 lotion 04/10/17 Unknown Rx Medicated Lotion] hydrOXYzine HCL [Atarax] 25 mg PO Q6HR PRN #16 tablet 04/10/17 Unknown Rx Hyoscyamine Subl [Levsin Sl 0.125 0.125 mg SL Q6HR PRN #20 tab 11/07/19 Unknown Rx TAB] Ketorolac [Toradol] 10 mg PO Q6H PRN #14 tablet 04/20/20 Unknown Rx Topiramate [Topamax] 100 mg PO BID #30 tab 04/20/20 Unknown Rx methOCARBAMOL [Robaxin TAB] 500 mg PO BID PRN #10 tab 04/20/20 Unknown Rx Active Meds: Active Medications Acetaminophen (Tylenol) 650 mg PO Q4H PRN PRN Reason: Pain MILD(1-3)/Fever >100.5/MUNOZ Enoxaparin Sodium (Enoxaparin) 40 mg SUB-Q QDAY@2200 NARCISO; Protocol Famotidine (Pepcid) 20 mg PO BID [facility] Last Admin: 04/20/20 09:44 Dose: 20 mg Documented by: Ferrous Sulfate (Feosol) 325 mg PO BID [facility] Last Admin: 04/20/20 09:44 Dose: 325 mg Documented by: Ketorolac Tromethamine (Toradol) 10 mg PO Q6H PRN PRN Reason: Pain, Mild (1-3) Stop: 04/25/20 07:54 Magnesium Hydroxide (Milk Of Magnesia) 30 ml PO Q4H PRN PRN Reason: Constipation Methocarbamol (Robaxin) 500 mg PO BID PRN PRN Reason: MUSCLE RELAXANT Ondansetron HCl (Zofran) 4 mg IV Q8H PRN PRN Reason: Nausea And Vomiting Last Admin: 04/20/20 07:28 Dose: 4 mg Documented by: Oxycodone/Acetaminophen (Percocet 5/325) 1 tab PO Q6H PRN PRN Reason: Pain, Moderate (4-6) Sodium Chloride (Sodium Chloride Flush Syringe 10 Ml) 10 ml IV BID [facility] Last Admin: 04/20/20 09:44 Dose: 10 ml Documented by: Sodium Chloride (Sodium Chloride Flush Syringe 10 Ml) 10 ml IV PRN PRN PRN Reason: LINE FLUSH Topiramate (Topamax) 100 mg PO BID [facility] Last Admin: 04/20/20 09:43 Dose: 100 mg Documented by: Review of Systems All systems: negative Exam - Vital Signs Vital signs: Vital Signs Temp Pulse Resp BP Pulse Ox 98.7 F 67 18 136/93 100 04/19/20 19:05 04/19/20 19:05 04/19/20 19:05 04/19/20 19:05 04/19/20 19:05 - General Appearance General appearance: well-developed, well-nourished EENT: ATNC Heart: regular, S1S2 Gastrointestinal: Present: normal. Absent: tenderness, distended Integumentary: no rash, warm and dry Musculoskeletal: Present: other (no edema) Psychiatric: cooperative Results - Lab Results 04/20/20 04:38 04/20/20 04:38 Most recent lab results Calcium 9.9 mg/dL (8.4-10.2) 04/20/20 04:38 Assessment and Plan Impression: * Hypernatremia * Back pain Plan: * Hypernatremia resolved - Na now wnl. ?collection error * Encouraged hydration * Pain management and work up of back pain per primary team * Will see prn
--- NOTE | 2020-04-20 12:33 | Discharge Summary ---
<BETHANY CASTRO - Last Filed: 04/20/20 12:33> Providers - Providers Date of Admission: 04/19/20 23:49 Attending physician: BLADIMIR MENDEZ MD 04/19/20 23:21 Consult to Physician [CONS] Stat Comment: Consulting Provider: SHAHLA VANG Physician Instructions: IV Fluids admit to hospitalist Reason For Exam: Acute Hypernatremia 04/20/20 05:23 Consult to Physician [CONS] Routine Comment: Consulting Provider: KAYE GREEN Physician Instructions: Reason For Exam: Persistent headache [facility] Condition: Stable Pertinent studies: 04/19 CXR shows no acute abrnomality. 04/20 CT Lumber spine 04/20 [facility] Hospital course: 34-year-old -[place]i female with chronic osteoarthritis, bipolar disorder, migraine headaches and asthma presenting to the emergency room in 04/19 complaining of lower back pain, nausea and vomiting, persistent headache and chest tightness which has been ongoing for about a month but got worse about a week ago. 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 She also has a son who is mentally challenged at home which she indicates that she lifts pretty often. She otherwise has not had any injury to her back or had any fall. Over the past few days she has had constant back pain, headache and has had nausea and vomiting. Headache has been persistent lately. She has taken some yhcv-srj-pbtwits medication without any significant improvement. Work-up in the emergency room today, labs reveals hypernatremia of 165. Patient was started on IV fluid in the emergency room and a consult was also placed by the ER physician to the audit senior associate. Today her hypernaturemia has resolved. Patient received a CT head and CT lumber spine this morning. She will need to followup with her PCP and her neurologist (patient indicated she used to see a neurologist) within 1-2 weeks of discharge. - Patient Problems (1) Acute hypernatremia Current Visit: Yes Status: Resolved Plan to address problem: - s/p D5W gtt - Admit sodium 165 - 04/20 sodium 141 - Patient is awake, alert, orientated, conversing and follows commands (2) Acute low back pain without sciatica Current Visit: Yes Status: Acute Qualifiers: Back pain laterality: bilateral Qualified Code(s): M54.5 - Low back pain Plan to address problem: - Neuro consult - f/u with PCP and your neurologist out patient - 04/20 CT Lspine pending (3) Migraine headache without aura Current Visit: Yes Status: Acute Qualifiers: Status migrainosus presence: without status migrainosus Intractability: not intractable Qualified Code(s): G43.009 - Migraine without aura, not intractable, without status migrainosus Plan to address problem: - PRN analgesics - f/u with outpateitn neurology - f/u with PCP - CTH pending Disposition: DC-01 TO HOME OR SELFCARE Time spent for discharge: 35 Core Measure Documentation - Palliative Care Palliative Care/ Comfort Measures: Not Applicable - Core Measures Any of the following diagnoses?: none Exam - Constitutional Vitals: Temp Pulse Resp BP Pulse Ox 98.2 F 71 20 130/74 95 04/20/20 08:27 04/20/20 08:27 04/20/20 08:27 04/20/20 08:27 04/20/20 08:27 General appearance: Present: no acute distress - EENT Eyes: Present: PERRL, EOM intact ENT: hearing intact, clear oral mucosa, dentition normal - Neck Neck: Present: supple, normal ROM - Respiratory Respiratory effort: normal Respiratory: bilateral: CTA - Cardiovascular Rhythm: regular Heart Sounds: Present: S1 & S2. Absent: systolic murmur, diastolic murmur - Extremities Extremities: no ischemia, pulses intact, pulses symmetrical, No edema, normal temperature, normal color, Full ROM Peripheral Pulses: within normal limits - Abdominal General gastrointestinal: Present: soft, non-tender, non-distended, normal bowel sounds - Integumentary Integumentary: Present: clear, warm, dry - Musculoskeletal Musculoskeletal: strength equal bilaterally, generalized weakness - Psychiatric Psychiatric: appropriate mood/affect, memory intact, cooperative - Neurologic Neurologic: CNII-XII intact, no focal deficits, moves all extremities - Allied Health Allied health notes reviewed: nursing Plan Activity: advance as tolerated Diet: regular Additional Instructions: Contact primary care physician present to nearest emergency department if you experience worsening symptoms. Follow-up with your outpatient neurologist and primary care physician within 1 to 2 weeks of discharge. Follow up with: MILENA BRAVO II, MD [Staff Physician] - 7 Days [place] LIUDMILA RIZZO MD [Primary Care Provider] - 3-5 Days SERAFIN GORDON MD [Staff Physician] - 7 Days Prescriptions: methOCARBAMOL [Robaxin TAB] 500 mg PO BID PRN #10 tab PRN Reason: pain Topiramate [Topamax] 100 mg PO BID #30 tab Ketorolac [Toradol] 10 mg PO Q6H PRN #14 tablet PRN Reason: Pain <BLADIMIR MENDEZ - Last Filed: 04/21/20 19:02> Providers - Providers Date of Admission: 04/19/20 23:49 Attending physician: BLADIMIR MENDEZ MD 04/19/20 23:21 Consult to Physician [CONS] Stat Comment: Consulting Provider: SHAHLA VANG Physician Instructions: IV Fluids admit to hospitalist Reason For Exam: Acute Hypernatremia 04/20/20 05:23 Consult to Physician [CONS] Routine Comment: Consulting Provider: KAYE GREEN Physician Instructions: Reason For Exam: Persistent headache [facility] Hospital course: I saw and evaluated the patient. I agree with the findings and the plan of care as documented in the Nurse Practitioner's~note, with the following corrections and additions. Exam - Constitutional Vitals: Temp Pulse Resp BP Pulse Ox 98.0 F 77 20 106/67 99 04/20/20 17:20 04/20/20 17:20 04/20/20 17:20 04/20/20 17:20 04/20/20 17:20
--- NOTE | 2020-04-20 16:00 | Cat Scan Report ---
CT lumbar spine wo con INDICATION / CLINICAL INFORMATION: 34 years Female; eval of lower back pain. TECHNIQUE: Axial CT images of the lumbar spine were obtained after administration of intrathecal contrast. Sagi ttal and coronal reformatted images were produced. All CT scans at this location are performed using CT dose reduction for ALARA by means of automated exposure control. COMPARISON: The study is compared to the previous CT of 11/27/2016. FINDINGS: POST-SURGICAL CHANGES: None. ALIGNMENT: There is no developing spondylolisthesis or scoliosis involving lumbar spine. VERTEBRAE: The lumbar vertebral bodies demonstrate appropriate height. There is no CT evidence of acu te compression fracture. INTERVERTEBRAL DISCS: The intervertebral disc spaces are fairly well-maintained without clear CT evid ence of interval developing spinal stenosis from the previous CT. PARASPINAL SOFT TISSUES: There is partially of visualized fat density within the upper right pelvis w ith different attenuation from the fat within the remaining abdomen. This finding correlates with ova stella dermoid on the previous CT abdomen and pelvis of 11/07/2019. ADDITIONAL FINDINGS: None. IMPRESSION: 1. There is no CT evidence of acute fracture or significant developing bony of stenosis involving the lumbar spine. Signer Name: Lenin Drake MD Signed: 04/20/2020 3:55 PM Workstation Name: [id number]
--- NOTE | 2020-04-20 16:05 | Cat Scan Report ---
CT head/brain wo con INDICATION / CLINICAL INFORMATION: 34 years Female; eval for persistent headache. TECHNIQUE: Routine CT head without contrast. All CT scans at this location are performed using CT dos e reduction for ALARA by means of automated exposure control. COMPARISON: None. FINDINGS: BRAIN / INTRACRANIAL CONTENTS: The brain demonstrate appropriate attenuation. The ventricular system is within normal limits in size and configuration. There is a small focus of calcification within the left basal ganglia. There is no clear CT evidence of acute intracranial hemorrhage or significant ma ss effect. ORBITS: No significant abnormality of visualized orbits. SINUSES / MASTOIDS: No significant abnormality in the visualized paranasal sinuses or mastoid air jaja ls. CRANIOCERVICAL JUNCTION: No significant abnormality. ADDITIONAL FINDINGS: None. IMPRESSION: 1. There is no CT evidence of acute intracranial process. Signer Name: Lenin Drake MD Signed: 04/20/2020 3:58 PM Workstation Name: [id number]
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
[2020-04-20 18:37] VITALS: BP 106/67
[2020-04-20] MEDS ORDERED: ENOXAPARIN 40 MG/0.4 ML INJ SUB-Q SCH (22:00)
== END 2020-04-20 18:10 | disposition home or self-care (01) ==
LOC: ED 16:44 → 3A 23:49
PROVIDERS: ADMIT Internal Medicine Geriatric Medicine; ATTEND Internal Medicine
DX: E87.0 Hyperosmolality and hypernatremia (principal); M54.5 Low back pain; G43.009 Migraine without aura, not intractable, without status migrainosus; R07.89 Other chest pain; R11.2 Nausea with vomiting, unspecified; F31.9 Bipolar disorder, unspecified; Z98.891 History of uterine scar from previous surgery
CPT/HCPCS: 36415; 70450; 71046; 72131; 80048; 80053; 81001; 83880; 83930; 84484; 84703; 85025; 85610; 93005; 96372; 96374; 96375; 99285; G0378; J1100; J1885; J2270; J2405; 85007; Q0162

== ENCOUNTER 2020-05-18 00:18 | Emergency (ER) | payer MEDICAID ==
[2020-05-18] MEDS ORDERED: ASPIRIN 325 MG TAB PO ONE (00:45)
[2020-05-18 02:02] LABS: Hematocrit 35.9 % (30.3-42.9); Hemoglobin 12.5 gm/dl (10.1-14.3); Mean Corpuscular HGB Conc 35 % (30-34); Mean Corpuscular Volume 89 fl (79-97); Platelet Count 316 K/mm3 (140-440); Red Blood Count 4.04 M/mm3 (3.65-5.03); Red Cell Distribution Width 13.1 % (13.2-15.2)
[2020-05-18] MEDS ORDERED: ONDANSETRON 4 MG ODT TAB ONE (02:07)
[2020-05-18] MEDS ORDERED: ONDANSETRON 4 MG ODT TAB PO ONE (02:08)
[2020-05-18 02:20] LABS: Blood Urea Nitrogen 8 mg/dL (7-17); Calcium 9.6 mg/dL (8.4-10.2); Hemolysis Index 7
[2020-05-18 02:41] LABS: BUN/Creatinine Ratio 13
--- NOTE | 2020-05-18 02:49 | XRay Report ---
CHEST 1 VIEW INDICATION / CLINICAL INFORMATION: Chest Pain. COMPARISON: Chest radiograph 04/19/2020 FINDINGS: SUPPORT DEVICES: None. HEART / MEDIASTINUM: No significant abnormality. LUNGS / PLEURA: No significant pulmonary or pleural abnormality. No pneumothorax. ADDITIONAL FINDINGS: No significant additional findings. IMPRESSION: 1. No acute findings. Signer Name: Meghan Morrow MD Signed: 05/18/2020 2:45 AM Workstation Name: [id number]
[2020-05-18 03:57] LABS: Eosinophils % (Manual) 0 % (0.0-4.3); Ovalocytes Rare; Platelet Estimate Consistent w Auto; Total Cells Counted 100
[2020-05-18] MEDS ORDERED: KETOROLAC 30 MG/1 ML INJ IM ONE (06:54)
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
[2020-05-18 07:50] LABS: INR 1.07 (0.87-1.13)
[2020-05-18 07:51] LABS: Partial Thromboplastin Time 29.7 Sec. (24.2-36.6)
[2020-05-18 08:35] VITALS: BP 115/70
== END 2020-05-18 08:35 | disposition home or self-care (01) ==
LOC: ED 00:18
DX: R07.89 Other chest pain (principal); I25.2 Old myocardial infarction; M19.90 Unspecified osteoarthritis, unspecified site; F31.9 Bipolar disorder, unspecified; F17.200 Nicotine dependence, unspecified, uncomplicated; G43.909 Migraine, unspecified, not intractable, without status migrainosus; Z79.899 Other long term (current) drug therapy; Z88.0 Allergy status to penicillin
CPT/HCPCS: 36415; 71045; 80048; 84484; 84703; 85007; 85025; 85379; 85610; 85730; 93005; 96372; 99284; J1885; Q0162

== ENCOUNTER 2021-05-01 15:51 | Emergency (ER) | payer MEDICAID ==
[2021-05-01] MEDS ORDERED: LACTULOSE 20 GM/30 ML ORAL LIQD PO ONE (16:18)
[2021-05-01] MEDS ORDERED: MAGNESIUM CITRATE 300 ML ORAL LIQD PO ONE (16:18)
[2021-05-01] MEDS ORDERED: DOCUSATE SODIUM 100 MG/10 ML ORAL LIQD PO ONE (16:19)
--- NOTE | 2021-05-01 16:39 | Emergency Department Report ---
ED Abdominal Pain HPI - General Chief Complaint: Abdominal Pain Stated Complaint: Abdominal Pain Time Seen by Provider: 05/01/21 16:13 Source: patient Mode of arrival: Ambulatory Limitations: No Limitations - History of Present Illness Initial Comments: Patient is a 35-year-old female presents emergency room complaints of constipation for 3 days. She states that she took 1 dose of MiraLAX without any relief. She states that she has been straining to have a bowel movement but is unsuccessful. She states that it is causing her to have abdominal pain. She denies any vomiting. She has been able to tolerate liquids. She states that she does not want to eat very much. She denies any hemorrhoids or perirectal pain. She denies any fever, hematochezia, melena, hematemesis. Allergy to penicillin. She states her only abdominal surgical history x1. - Related Data Home Medications Medication Instructions Recorded Confirmed Last Taken Ferrous Sulfate [Feosol 325 MG tab] 325 mg PO BID 11/12/16 11/12/16 1 Day Ago ~11/11/16 Previous Rx's Medication Instructions Recorded Last Taken Type Famotidine [Pepcid] 20 mg PO BID #7 tablet 03/05/17 Unknown Rx Pramoxine HCl/Calamine [Calamine 1 applic TP DAILY #1 lotion 04/10/17 Unknown Rx Medicated Lotion] hydrOXYzine HCL [Atarax] 25 mg PO Q6HR PRN #16 tablet 04/10/17 Unknown Rx Hyoscyamine Subl [Levsin Sl 0.125 0.125 mg SL Q6HR PRN #20 tab 11/07/19 Unknown Rx TAB] Ketorolac [Toradol] 10 mg PO Q6H PRN #14 tablet 04/20/20 Unknown Rx Topiramate [Topamax] 100 mg PO BID #30 tab 04/20/20 Unknown Rx methOCARBAMOL [Robaxin TAB] 500 mg PO BID PRN #10 tab 04/20/20 Unknown Rx Naproxen [Naprosyn] 500 mg PO BID #20 tablet 05/18/20 Unknown Rx methOCARBAMOL [Robaxin TAB] 500 mg PO Q8HR PRN #20 tablet 05/18/20 Unknown Rx Docusate Sodium [Colace] 100 mg PO BID PRN #60 capsule 05/01/21 Unknown Rx Glycerin Adult 2 gm 2 gm ID DAILY PRN #10 supp.rect 05/01/21 Unknown Rx Polyethylene Glycol 3350 [Miralax] 17 gm PO DAILY #1 powder 05/01/21 Unknown Rx Allergies Allergy/AdvReac Type Severity Reaction Status Date / Time Penicillins Allergy Swelling Verified 05/20/17 20:04 ED Review of Systems ROS: Stated complaint: Abdominal Pain Other details as noted in HPI Comment: All other systems reviewed and negative ED Past Medical Hx - Past Medical History Hx Hypertension: No Hx Heart Attack/AMI: Yes Hx Liver Disease: No Hx Renal Disease: No Hx Sickle Cell Disease: No Hx Arthritis: Yes Hx Headaches / Migraines: Yes (MIGRAINES) Hx Seizures: No Hx Psychiatric Treatment: Yes (Bipolar, PANIC ATTACK) Hx Asthma: Yes Hx COPD: No Hx HIV: No - Surgical History Hx Pacemaker: No Hx Internal Defibrillator: No Additional Surgical History: csection. D & C - Social History Smoking Status: Current Every Day Smoker Substance Use Type: None - Medications Home Medications: Home Medications Medication Instructions Recorded Confirmed Last Taken Type Ferrous Sulfate [Feosol 325 MG tab] 325 mg PO BID 11/12/16 11/12/16 1 Day Ago History ~11/11/16 Famotidine [Pepcid] 20 mg PO BID #7 tablet 03/05/17 Unknown Rx Pramoxine HCl/Calamine [Calamine 1 applic TP DAILY #1 lotion 04/10/17 Unknown Rx Medicated Lotion] hydrOXYzine HCL [Atarax] 25 mg PO Q6HR PRN #16 tablet 04/10/17 Unknown Rx Hyoscyamine Subl [Levsin Sl 0.125 0.125 mg SL Q6HR PRN #20 tab 11/07/19 Unknown Rx TAB] Ketorolac [Toradol] 10 mg PO Q6H PRN #14 tablet 04/20/20 Unknown Rx Topiramate [Topamax] 100 mg PO BID #30 tab 04/20/20 Unknown Rx methOCARBAMOL [Robaxin TAB] 500 mg PO BID PRN #10 tab 04/20/20 Unknown Rx Naproxen [Naprosyn] 500 mg PO BID #20 tablet 05/18/20 Unknown Rx methOCARBAMOL [Robaxin TAB] 500 mg PO Q8HR PRN #20 tablet 05/18/20 Unknown Rx Docusate Sodium [Colace] 100 mg PO BID PRN #60 capsule 05/01/21 Unknown Rx Glycerin Adult 2 gm 2 gm ID DAILY PRN #10 supp.rect 05/01/21 Unknown Rx Polyethylene Glycol 3350 [Miralax] 17 gm PO DAILY #1 powder 05/01/21 Unknown Rx ED Physical Exam - General Limitations: No Limitations General appearance: alert, in no apparent distress - Head Head exam: Present: atraumatic, normocephalic - Eye Eye exam: Present: normal appearance - ENT ENT exam: Present: mucous membranes moist - Respiratory Respiratory exam: Present: normal lung sounds bilaterally. Absent: respiratory distress, wheezes, rales, rhonchi, stridor, chest wall tenderness, accessory muscle use, decreased breath sounds, prolonged expiratory - Cardiovascular Cardiovascular Exam: Present: regular rate, normal rhythm, normal heart sounds. Absent: systolic murmur, diastolic murmur, rubs, gallop - GI/Abdominal GI/Abdominal exam: Present: soft, tenderness (mild generalized), normal bowel sounds. Absent: distended, guarding, rebound, rigid - Neurological Exam Neurological exam: Present: alert, oriented X3 - Psychiatric Psychiatric exam: Present: normal affect, normal mood - Skin Skin exam: Present: warm, dry, intact ED Course Vital Signs 05/01/21 05/01/21 05/01/21 15:55 17:52 20:47 Temperature 98.7 F 98.4 F 97.2 F L Pulse Rate 101 H 73 72 Respiratory 16 14 18 Rate Blood Pressure 152/94 Blood Pressure 121/83 114/76 [Right] O2 Sat by Pulse 100 99 96 Oximetry ED Medical Decision Making - Lab Data Vital Signs 05/01/21 05/01/21 05/01/21 15:55 17:52 20:47 Temperature 98.7 F 98.4 F 97.2 F L Pulse Rate 101 H 73 72 Respiratory 16 14 18 Rate Blood Pressure 152/94 Blood Pressure 121/83 114/76 [Right] O2 Sat by Pulse 100 99 96 Oximetry - Radiology Data Radiology results: report reviewed Ordering Physician: MC ELIAS Date of Service: 05/01/21 Procedure(s): XR abdomen 2V Accession Number(s): [id number] cc: MC ELIAS Fluoro Time In Minutes: ABDOMEN 2 VIEWS INDICATION / CLINICAL INFORMATION: Constipation and abdominal pain. COMPARISON: None available. FINDINGS: TUBES / LINES: None. BOWEL GAS PATTERN: There is a moderately large amount of stool throughout the colon. I see no evidence of bowel obstruction or mass effect. FREE AIR / EXTRALUMINAL GAS: None seen. ADDITIONAL FINDINGS: No significant additional findings. CHEST: Visualized chest shows no significant abnormality. IMPRESSION: No acute abnormality is identified. Signer Name: Scottie Villagran MD Signed: 05/01/2021 5:04 PM Workstation Name: [id number] Transcribed By: RT Dictated By: Scottie Villagran MD Electronically Authenticated By: Scottie Villagran MD Signed Date/Time: 05/01/211703 DD/ 02 TD/TT: - Medical Decision Making Patient is a 35-year-old female presents emergency room complaints of constipation for 3 days. She states that she took 1 dose of MiraLAX without any relief. She states that she has been straining to have a bowel movement but is unsuccessful. She states that it is causing her to have abdominal pain. She denies any vomiting. She has been able to tolerate liquids. She states that she does not want to eat very much. She denies any hemorrhoids or perirectal pain. She denies any fever, hematochezia, melena, hematemesis. Allergy to penicillin. She states her only abdominal surgical history x1. Vitals are stable.XR abdomen: BOWEL GAS PATTERN: There is a moderately large amount of stool throughout the colon. I see no evidence of bowel obstruction or mass effect. FREE AIR / EXTRALUMINAL GAS: None seen. ADDITIONAL FINDINGS: No significant additional findings. CHEST: Visualized chest shows no significant abnormality. Patient given oral medications on the emergency department but was still unable to have a bowel movement. Suppository placed by nurse and ordered enema, prior to nurse performing enema patient was able to have a bowel movement successfully. Patient states that she is on chronic narcotics and she does not take any stool softeners. Patient given prescription for medication. Advised patient Please take medication as prescribed. Increase your water intake. Increase your fiber intake. Follow-up with your primary care doctor. Return to emergency room for any new or worsening symptoms. Given that you are on chronic narcotics this will likely cause significant constipation. Critical care attestation.: If time is entered above; I have spent that time in minutes in the direct care of this critically ill patient, excluding procedure time. ED Disposition Clinical Impression: Constipation Qualifiers: Constipation type: unspecified constipation type Qualified Code(s): K59.00 - Constipation, unspecified Disposition: HOME / SELF CARE / HOMELESS Is pt being admited?: No Does the pt Need Aspirin: No Condition: Stable Instructions: Constipation, Adult, [id number], Abdominal Pain (ED) Additional Instructions: Please take medication as prescribed. Increase your water intake. Increase your fiber intake. Follow-up with your primary care doctor. Return to emergency room for any new or worsening symptoms. Given that you are on chronic narcotics this will likely cause significant constipation. Prescriptions: Docusate Sodium [Colace] 100 mg PO BID PRN #60 capsule PRN Reason: constipation Glycerin Adult 2 gm 2 gm ID DAILY PRN #10 supp.rect PRN Reason: constipation Polyethylene Glycol 3350 [Miralax] 17 gm PO DAILY #1 powder Referrals: RADHA ARCHER MD [Staff Physician] - 3-5 Days [facility] [Provider Group] - 3-5 Days PRIMARY MD KARIME [Primary Care Provider] - 3-5 Days Time of Disposition: 20:35 Print Language: GEORGIAN
--- NOTE | 2021-05-01 17:08 | XRay Report ---
ABDOMEN 2 VIEWS INDICATION / CLINICAL INFORMATION: Constipation and abdominal pain. COMPARISON: None available. FINDINGS: TUBES / LINES: None. BOWEL GAS PATTERN: There is a moderately large amount of stool throughout the colon. I see no evidenc e of bowel obstruction or mass effect. FREE AIR / EXTRALUMINAL GAS: None seen. ADDITIONAL FINDINGS: No significant additional findings. CHEST: Visualized chest shows no significant abnormality. IMPRESSION: No acute abnormality is identified. Signer Name: Scottie Villagran MD Signed: 05/01/2021 5:04 PM Workstation Name: [id number]
[2021-05-01] MEDS ORDERED: GLYCERIN ADULT 2 GRAM RECT SUPP PR NR (17:30)
[2021-05-01] MEDS ORDERED: FLEET ENEMA PR ONE (19:46)
[2021-05-01 20:50] VITALS: BP 114/76
== END 2021-05-01 20:50 | disposition home or self-care (01) ==
LOC: ED 15:51
DX: K59.00 Constipation, unspecified (principal); M19.90 Unspecified osteoarthritis, unspecified site; J45.909 Unspecified asthma, uncomplicated; F31.9 Bipolar disorder, unspecified; F17.200 Nicotine dependence, unspecified, uncomplicated; Z88.0 Allergy status to penicillin; Z79.899 Other long term (current) drug therapy
CPT/HCPCS: 74019; 99283

== ENCOUNTER 2021-08-02 11:24 | Emergency (ER) | payer MEDICAID ==
[2021-08-02] MEDS ORDERED: MORPHINE 4 MG/1 ML INJ IM ONE (12:57)
[2021-08-02] MEDS ORDERED: ONDANSETRON 4 MG/2 ML INJ IM ONE (12:57)
--- NOTE | 2021-08-02 12:59 | Emergency Department Report ---
ED Back Pain/Injury HPI - General Chief Complaint: Nausea/Vomiting/Diarrhea Stated Complaint: BODY PAIN/NAUSEA Time Seen by Provider: 08/02/21 12:34 Source: patient Limitations: No Limitations - History of Present Illness Initial Comments: Patient is 35 years old female with history of chronic back pain. Patient stated that she had MRI in 2019 and she was told that she has degenerative disc disease. Patient presented to the ER complaining of lower back pain that started 3 days ago. Patient denied any recent injury. Patient denied any lower extremity weakness, numbness or tingling sensation. No bowel or bladder incontinence. Patient denied any fever or chills. No recent weight loss. MD Complaint: back pain Radiation: buttocks Severity: moderate Quality: sharp Improves With: immobilization Worsens With: movement Associated Symptoms: denies other symptoms - Related Data Home Medications Medication Instructions Recorded Confirmed Last Taken Ferrous Sulfate [Feosol 325 MG tab] 325 mg PO BID 11/12/16 11/12/16 1 Day Ago ~11/11/16 Previous Rx's Medication Instructions Recorded Last Taken Type Famotidine [Pepcid] 20 mg PO BID #7 tablet 03/05/17 Unknown Rx Pramoxine HCl/Calamine [Calamine 1 applic TP DAILY #1 lotion 04/10/17 Unknown Rx Medicated Lotion] hydrOXYzine HCL [Atarax] 25 mg PO Q6HR PRN #16 tablet 04/10/17 Unknown Rx Hyoscyamine Subl [Levsin Sl 0.125 0.125 mg SL Q6HR PRN #20 tab 11/07/19 Unknown Rx TAB] Ketorolac [Toradol] 10 mg PO Q6H PRN #14 tablet 04/20/20 Unknown Rx Topiramate [Topamax] 100 mg PO BID #30 tab 04/20/20 Unknown Rx methOCARBAMOL [Robaxin TAB] 500 mg PO BID PRN #10 tab 04/20/20 Unknown Rx Naproxen [Naprosyn] 500 mg PO BID #20 tablet 05/18/20 Unknown Rx methOCARBAMOL [Robaxin TAB] 500 mg PO Q8HR PRN #20 tablet 05/18/20 Unknown Rx Docusate Sodium [Colace] 100 mg PO BID PRN #60 capsule 05/01/21 Unknown Rx Glycerin Adult 2 gm 2 gm MS DAILY PRN #10 supp.rect 05/01/21 Unknown Rx Polyethylene Glycol 3350 [Miralax] 17 gm PO DAILY #1 powder 05/01/21 Unknown Rx Allergies Allergy/AdvReac Type Severity Reaction Status Date / Time Penicillins Allergy Swelling Verified 05/20/17 20:04 ED Review of Systems ROS: Stated complaint: BODY PAIN/NAUSEA Other details as noted in HPI Comment: All other systems reviewed and negative Constitutional: denies: chills, fever Respiratory: denies: cough, shortness of breath, SOB with exertion Cardiovascular: denies: chest pain, palpitations Gastrointestinal: denies: abdominal pain, nausea, vomiting Musculoskeletal: back pain. denies: joint swelling, arthralgia, myalgia Neurological: denies: headache, weakness, numbness ED Past Medical Hx - Past Medical History Hx Hypertension: No Hx Heart Attack/AMI: Yes Hx Liver Disease: No Hx Renal Disease: No Hx Sickle Cell Disease: No Hx Arthritis: Yes Hx Headaches / Migraines: Yes (MIGRAINES) Hx Seizures: No Hx Psychiatric Treatment: Yes (Bipolar, PANIC ATTACK) Hx Asthma: Yes Hx COPD: No Hx HIV: No - Surgical History Hx Pacemaker: No Hx Internal Defibrillator: No Additional Surgical History: csection. D & C - Social History Smoking Status: Current Every Day Smoker Substance Use Type: None - Medications Home Medications: Home Medications Medication Instructions Recorded Confirmed Last Taken Type Ferrous Sulfate [Feosol 325 MG tab] 325 mg PO BID 11/12/16 11/12/16 1 Day Ago History ~11/11/16 Famotidine [Pepcid] 20 mg PO BID #7 tablet 03/05/17 Unknown Rx Pramoxine HCl/Calamine [Calamine 1 applic TP DAILY #1 lotion 04/10/17 Unknown Rx Medicated Lotion] hydrOXYzine HCL [Atarax] 25 mg PO Q6HR PRN #16 tablet 04/10/17 Unknown Rx Hyoscyamine Subl [Levsin Sl 0.125 0.125 mg SL Q6HR PRN #20 tab 11/07/19 Unknown Rx TAB] Ketorolac [Toradol] 10 mg PO Q6H PRN #14 tablet 04/20/20 Unknown Rx Topiramate [Topamax] 100 mg PO BID #30 tab 04/20/20 Unknown Rx methOCARBAMOL [Robaxin TAB] 500 mg PO BID PRN #10 tab 04/20/20 Unknown Rx Naproxen [Naprosyn] 500 mg PO BID #20 tablet 05/18/20 Unknown Rx methOCARBAMOL [Robaxin TAB] 500 mg PO Q8HR PRN #20 tablet 05/18/20 Unknown Rx Docusate Sodium [Colace] 100 mg PO BID PRN #60 capsule 05/01/21 Unknown Rx Glycerin Adult 2 gm 2 gm MS DAILY PRN #10 supp.rect 05/01/21 Unknown Rx Polyethylene Glycol 3350 [Miralax] 17 gm PO DAILY #1 powder 05/01/21 Unknown Rx ED Physical Exam - General Limitations: No Limitations General appearance: alert, in no apparent distress - Head Head exam: Present: atraumatic, normocephalic, normal inspection - Eye Eye exam: Present: normal appearance, PERRL - ENT ENT exam: Present: normal exam, normal orophraynx, mucous membranes moist - Neck Neck exam: Present: normal inspection, full ROM. Absent: tenderness, meningismus - Respiratory Respiratory exam: Present: normal lung sounds bilaterally - Cardiovascular Cardiovascular Exam: Present: regular rate, normal rhythm, normal heart sounds - GI/Abdominal GI/Abdominal exam: Present: soft, normal bowel sounds. Absent: distended, tenderness, guarding, rebound, rigid, organomegaly, mass, bruit, pulsatile mass, hernia - Extremities Exam Extremities exam: Present: normal inspection, full ROM, normal capillary refill. Absent: tenderness - Back Exam Back exam: Present: normal inspection, full ROM. Absent: CVA tenderness (R), CVA tenderness (L) - Neurological Exam Neurological exam: Present: alert, oriented X3, CN II-XII intact - Psychiatric Psychiatric exam: Present: normal mood - Skin Skin exam: Present: warm, intact, normal color ED Course Vital Signs 08/02/21 12:13 Temperature 98.7 F Pulse Rate 95 H Respiratory 18 Rate Blood Pressure 127/88 [Right] O2 Sat by Pulse 99 Oximetry ED Medical Decision Making - Medical Decision Making Patient is 35 years old female with history of chronic back pain. Patient stated that she had MRI in 2019 and she was told that she has degenerative disc disease. Patient presented to the ER complaining of lower back pain that started 3 days ago. Patient denied any recent injury. Patient denied any lower extremity weakness, numbness or tingling sensation. No bowel or bladder incontinence. Patient denied any fever or chills. No recent weight loss. Critical care attestation.: If time is entered above; I have spent that time in minutes in the direct care of this critically ill patient, excluding procedure time. ED Disposition Clinical Impression: Acute back pain Disposition: HOME / SELF CARE / HOMELESS Is pt being admited?: No Condition: Stable Instructions: Chronic Back Pain, [id number] Referrals: RADHA ARCHER MD [Primary Care Provider] - 3-5 Days
[2021-08-02] MEDS ORDERED: KETOROLAC 60 MG/2 ML INJ IM ONE (16:47)
[2021-08-02 17:22] VITALS: BP 119/81
== END 2021-08-02 17:22 | disposition home or self-care (01) ==
LOC: ED 11:24
DX: M54.50 Low back pain, unspecified (principal); Z88.0 Allergy status to penicillin; F17.200 Nicotine dependence, unspecified, uncomplicated
CPT/HCPCS: 96372; 99282; J1885; J2270; J2405